=== PATIENT | female | born 1980 | race Hispanic/Latino ===

== ENCOUNTER 2017-11-18 17:10 | Emergency (ER) | payer BC, OTHER ==
[~2017-11-18] VITALS: Ht 152.4 cm; Wt 76.7 kg
[~2017-11-18 17:10] MED LIST: Z.0.LEVOTHYROXINE112 PO; Z.0.MOBIC7.5 MG PO
--- OUTSIDE RECORDS SUMMARY | 2017-11-18 17:14 | XMS REPORT | Clinical Summary ---
Author Author [facility] Address Unknown Phone Unavailable Care Team Providers Care It Investment/Portfolio Manager Name Role Phone Ade Campbell MD PCP Allergies Active Allergy Reactions Severity Noted Date Comments Coconut Oil Anaphylaxis High 07/12/2017 Erythromycin Rash Low 07/12/2017 Iodine Swelling 07/12/2017 Metronidazole Other (See Comments) High 07/14/2017 Jaw pain and clenching Soy Rash Low 07/12/2017 Current Medications Prescription Sig. Disp. Refills Start End Date Status Date acetaminophen-codeine TAKE 1 TABLET BY MOUTH 0 04/23/20 Active (TYLENOL WITH CODEINE #3) EVERY 6 HOURS NEEDED 17 300-30 mg per tablet FOR ABDOMINAL PAIN. amitriptyline (ELAVIL) 25 TAKE 1 TABLET AT BEDTIME 1 05/27/20 Active MG tablet FOR 1 WEEK, THEN 2 17 TABLETS AT BEDTIME fluticasone (FLONASE) 50 2 sprays by Each Nare 11 05/27/20 Active mcg/actuation nasal spray route once daily. 17 ibuprofen (ADVIL,MOTRIN) TAKE 1 TABLET BY MOUTH 4 0 05/17/20 Active 600 MG tablet TIMES A DAY NEEDED 17 montelukast (SINGULAIR) TAKE 1 TABLET BY MOUTH 0 05/23/20 Active 10 mg tablet DAILY AT 5PM 17 predniSONE (DELTASONE) 20 07/09/20 Active mg tablet 17 propranolol (INDERAL) 20 Take 20 mg by mouth 3 1 05/04/20 Active MG tablet (three) times a day. 17 rizatriptan SAP BPC DEVELOPER TAKE 1 TABLET AT 2 05/27/20 Active (MAXALT-SAP BPC DEVELOPER) 10 MG BEGINNING OF HEADACHE DECEMBER 16 disintegrating tablet REPEAT IN 2 HOURS IF NEEDED topiramate (TOPAMAX) 100 Take 100 mg by mouth once 1 05/09/20 Active MG tablet daily. 17 traMADol (ULTRAM) 50 mg TAKE 1 TABLET BY MOUTH 0 05/17/20 Active tablet EVERY 6 HOURS NEEDED 17 FOR SEVERE PAIN diphenhydrAMINE Take 1 capsule (25 mg 10 capsule 0 11/10/19 Active (BENADRYL) 25 mg capsule total) by mouth every 6 18 18 (six) hours as needed for itching for up to 30 days. methylPREDNISolone follow package directions 21 tablet 0 11/10/19 (MEDROL DOSEPAK) 4 mg 18 18 tablet Active Problems Problem Noted Date Diverticulitis large intestine 07/13/2017 Encounters Date Type Specialty Care Team Description 11/09/2017 Emergency Emergency Medicine Halima Manrique MD Allergic reaction, initial encounter (Primary Dx) 07/12/2017 [facility] General Surgery Kirby Schaffer DO Abdominal pain in female - Encounter Zeb Dang MD (Primary Dx) 07/15/2017 after 11/17/2016 Social History Tobacco Use Types Packs/Day Years Used Date Former Smoker Smokeless Tobacco: Never Used Alcohol Use Drinks/Week oz/Week Comments Yes occasionally Sex Assigned at Date Recorded Not on file Last Filed Vital Signs Vital Sign Reading Time Taken Blood Pressure 108/55 11/09/2017 2:00 PM CDT Pulse 102 11/09/2017 2:00 PM CDT Temperature 36.5 C (97.7 F) 11/09/2017 12:51 PM CDT Respiratory Rate 17 11/09/2017 2:00 PM CDT Oxygen Saturation 98% 11/09/2017 2:00 PM CDT Inhaled Oxygen - - Concentration Weight 76.7 kg (169 lb) 11/09/2017 12:52 PM CDT Height 152.4 cm (5') 11/09/2017 12:52 PM CDT Body Mass Index 33.01 11/09/2017 12:52 PM CDT Plan of Treatment Health Maintenance Due Date Last Done Comments PAP SMEAR 1999 INFLUENZA VACCINE 03/02/2018 Results * Estimated GFR (07/15/2017 5:14 AM) Only the most recent of 3 results within the time period is included. Component Value Ref Range GFR Non Af Amer >90 mL/min/1.73 m2 GFR Af Amer >90 mL/min/1.73 m2 Comment: Chronic kidney disease: <60 mL/min/1.73m2 Kidney failure: <15 mL/min/1.73m2 The estimated GFR is calculated from the IDMS-traceable Modification of Diet in Renal Disease Equation. The accuracy of the calculation is poor when the creatinine is normal. Calculated values >90 mL/min/1.73m2 are not reported. This equation has not been validated in children (<18 years), women, the elderly (>70 years), or ethnic groups other than Caucasians and Americans. Specimen Performing Laboratory Plasma specimen [facility] DEPARTMENT OF PATHOLOGY AND GENOMIC MEDICINE [address] [place] [address] * CBC with platelet and differential (07/15/2017 5:14 AM) Only the most recent of 3 results within the time period is included. Component Value Ref Range WBC 12.23 (H) 4.50 - 11.00 k/uL RBC 4.12 (L) 4.20 - 5.50 m/uL HGB 11.6 (L) 12.0 - 16.0 g/dL HCT 34.2 (L) 37.0 - 47.0 % MCV 83.0 82.0 - 100.0 fL MCH 28.2 27.0 - 34.0 pg MCHC 33.9 31.0 - 37.0 g/dL RDW - SD 36.5 (L) 37.0 - 55.0 fL MPV 9.6 8.8 - 13.2 fL Platelet count 343 150 - 400 k/uL Nucleated RBC 0.00 /100 WBC Neutrophils 76.2 (H) 39.0 - 69.0 % Lymphocytes 15.6 (L) 25.0 - 45.0 % Monocytes 7.4 0.0 - 10.0 % Eosinophils 0.0 0.0 - 5.0 % Basophils 0.1 0.0 - 1.0 % Immature granulocytes 0.7Comment: "Immature granulocytes" 0.0 - 1.0 % (promyelocytes, myelocytes, metamyelocytes) Specimen Performing Laboratory Blood [facility] DEPARTMENT OF PATHOLOGY AND [employer] MEDICINE [address] [place] [place] [address] * Basic metabolic panel (07/15/2017 5:14 AM) Only the most recent of 2 results within the time period is included. Component Value Ref Range Sodium 141 135 - 148 mEq/L Potassium 4.3 3.5 - 5.0 mEq/L Chloride 103 98 - 112 mEq/L CO2 26 24 - 31 mEq/L Anion gap 12 7 - 15 mEq/L Comment: Starting from October , anion gap calculation no longer incorporates potassium. Please note the change. BUN 8 6 - 20 mg/dL Creatinine 0.4 (L) 0.5 - 0.9 mg/dL Glucose 154 (H) 65 - 99 mg/dL Calcium 8.9 8.3 - 10.2 mg/dL Specimen Performing Laboratory Plasma specimen [facility] DEPARTMENT OF PATHOLOGY AND [facility] [id number] [place] [address] [place] [address] * Magnesium level (07/13/2017 2:16 PM) Component Value Ref Range Magnesium 1.7 1.6 - 2.6 mg/dL Specimen Performing Laboratory Plasma specimen [facility] DEPARTMENT PATHOLOGY AND [facility] [address] [place] [address] [place] [address] * Calcium level (07/13/2017 2:16 PM) Component Value Ref Range Calcium 9.4 8.3 - 10.2 mg/dL Specimen Performing Laboratory Plasma specimen [facility] DEPARTMENT PATHOLOGY AND [facility] [address] [place] [address] [place] [address] * CT Abdomen Pelvis Wo Contrast (07/13/2017 12:19 AM) Specimen Performing Laboratory [address] ABDOMEN PELVIS WO CONTRAST CLINICAL INDICATION:ABDOMINAL PAIN TECHNIQUE:Multidetector CT of the abdomen and pelvis was performed without intravenous contrast with multiplanar reconstructions. CT imaging was performed with iterative reconstruction technique and/or automated exposure control to reduce radiation dose. COMPARISON:04/14/2016. FINDINGS: Please note, the lack of intravenous and oral contrast limits evaluation of the abdominal and pelvic viscera. LOWER THORAX:Clear. LIVER:Normal. BILIARY:There are surgical changes related to cholecystectomy. There is no abnormal biliary dilation. SPLEEN:Normal. PANCREAS:Normal. ADRENALS:Normal. KIDNEYS:No mass or hydronephrosis. GI:Large and small bowel are normal in caliber. There is colonic diverticulosis with mild colonic wall thickening and pericolonic inflammation adjacent to the distal descending/proximal sigmoid colon. There are surgical changes related to appendectomy. VASCULAR:Unremarkable LYMPH NODES:No enlarged lymph nodes in the abdomen or pelvis. PELVIS:The urinary bladder is decompressed, limiting evaluation. There are surgical changes related to hysterectomy. BONES:There are no acute osseous abnormalities. OTHER:There is no ascites or pneumoperitoneum. IMPRESSION: Diverticulitis of the distal descending/proximal sigmoid colon without perforation or abscess formation. [facility]-[id number] Procedure Note Hm Interface, Radiology Results Incoming - 07/13/2017 12:[address] ABDOMEN PELVIS WO CONTRAST CLINICAL INDICATION: ABDOMINAL PAIN TECHNIQUE: Multidetector CT of the abdomen and pelvis was performed without intravenous contrast with multiplanar reconstructions. CT imaging was performed with iterative reconstruction technique and/or automated exposure control to reduce radiation dose. COMPARISON: 04/14/2016. FINDINGS: Please note, the lack of intravenous and oral contrast limits evaluation of the abdominal and pelvic viscera. LOWER THORAX: Clear. LIVER: Normal. BILIARY: There are surgical changes related to cholecystectomy. There is no abnormal biliary dilation. SPLEEN: Normal. PANCREAS: Normal. ADRENALS: Normal. KIDNEYS: No mass or hydronephrosis. GI: Large and small bowel are normal in caliber. There is colonic diverticulosis with mild colonic wall thickening and pericolonic inflammation adjacent to the distal descending/proximal sigmoid colon. There are surgical changes related to appendectomy. VASCULAR: Unremarkable LYMPH NODES: No enlarged lymph nodes in the abdomen or pelvis. PELVIS: The urinary bladder is decompressed, limiting evaluation. There are surgical changes related to hysterectomy. BONES: There are no acute osseous abnormalities. OTHER: There is no ascites or pneumoperitoneum. IMPRESSION: Diverticulitis of the distal descending/proximal sigmoid colon without perforation or abscess formation. [facility]-[id number] * Urinalysis screen and microscopy, with reflex to culture (07/12/2017 10:25 PM) Component Value Ref Range Specimen site Clean catch Color, UA Yellow Appearance, UA Slightly-Cloudy Specific gravity, UA 1.020 1.001 - 1.035 pH, UA 5.0 5.0 - 8.5 Protein, UA Negative Negative Glucose, UA Negative Negative Ketones, UA Negative Negative Bilirubin, UA Negative Negative Blood, UA Negative Negative Nitrite, UA Negative Negative Urobilinogen, UA Negative <2.0 Leukocyte esterase, UA Negative Negative Epithelial cells, UA Moderate /HPF Round epithelial cells, Few 0 - 1 /HPF UA WBC, UA 0-5 0 - 4 /HPF RBC, UA 0-5 0 - 2 /HPF Bacteria, UA Trace None seen Yeast, UA None seen Yeast with pseudohyphae, None seen UA Specimen Performing Laboratory Urine [facility] DEPARTMENT PATHOLOGY AND [facility] [address] [place] [address] * hCG qualitative, urine screen (07/12/2017 10:25 PM) Component Value Ref Range hCG qualitative, urine Negative Negative Comment: The manufacturers stated sensitivity of HcG test for serum is >/=10 mIU/ml and urine is >/=20mIU/ml. Specimen Performing Laboratory Urine [facility] DEPARTMENT PATHOLOGY AND [facility] [address] [address] * Lipase level (07/12/2017 10:25 PM) Component Value Ref Range Lipase 22 13 - 60 U/L Specimen Performing Laboratory Plasma specimen [facility] AND [facility] [address] [address] * Comprehensive metabolic panel (07/12/2017 10:25 PM) Component Value Ref Range Sodium 137 135 - 148 mEq/L Potassium 3.8 3.5 - 5.0 mEq/L Chloride 101 98 - 112 mEq/L CO2 21 (L) 24 - 31 mEq/L Anion gap 15 7 - 15 mEq/L Comment: Starting from October , anion gap calculation no longer incorporates potassium. Please note the change. BUN 9 6 - 20 mg/dL Creatinine 0.4 (L) 0.5 - 0.9 mg/dL Glucose 98 65 - 99 mg/dL Calcium 8.8 8.3 - 10.2 mg/dL Protein 7.0 6.3 - 8.3 g/dL Comment: [place] 4.6-7.0 g/dL 1 week 4.4-7.6 g/dL 7 months-1year 5.1-7.3 g/dL 1-2 years 5.6-7.5 g/dL >3 years 6.0-8.0 g/dL 18-150 6.3-8.3 g/dL Albumin 3.3 (L) 3.5 - 5.0 g/dL A/G ratio 0.9 0.7 - 3.8 Alkaline phosphatase 108 (H) 35 - 104 U/L AST 22 10 - 35 U/L ALT 20 5 - 50 U/L Total bilirubin 0.4 0.0 - 1.2 mg/dL Specimen Performing Laboratory Plasma specimen [facility] DEPARTMENT OF PATHOLOGY AND GENOMIC MEDICINE [address] [place] [address] after 11/17/2016 Insurance Payer Benefit Subscriber ID Type Phone Address Plan / Group CIG[employer] CIGNA OPEN xxxxxxxxxxx HMO ACCESS/NET WORK Home:
[2017-11-18] MEDS ORDERED: LABETALOL HCL 5 MG/ML 20ML VIAL IV STA (17:44)
[2017-11-18 18:01] LABS: BASOPHILS % 0.2 % (0.0-1.0); EOSINOPHILS # (AUTO) 0.5 (0.0-0.4); EOSINOPHILS % 5.1 % (0.0-6.0); HEMATOCRIT 34.4 % (34.2-44.1); HEMOGLOBIN 11.7 g/dL (12.0-16.0); LYMPHOCYTES # (AUTO) 2.4 (1.0-3.2); LYMPHOCYTES % 25.2 % (18.0-39.1); MEAN CORPUSCULAR HEMOGLOBIN 28.3 pg (28-32); MEAN CORPUSCULAR VOLUME 83.1 fL (81-99); MONOCYTES % 10.1 % (4.4-11.3); NEUTROPHILS # (AUTO) 5.5 (2.1-6.9); NEUTROPHILS % 58.3 % (38.7-80.0); PLATELET COUNT 296 x10e3/uL (140-360); RED BLOOD COUNT 4.14 x10e6/uL (3.6-5.1); RED CELL DISTRIBUTION WIDTH 13.7 % (11.7-14.4)
[2017-11-18 18:11] LABS: INR 1.13; PROTHROMBIN TIME 13.6 seconds (11.9-14.5)
[2017-11-18 18:12] LABS: PARTIAL THROMBOPLASTIN TIME 29.2 seconds (23.8-35.5)
--- NOTE | 2017-11-18 18:14 | Diagnostic Imaging Report ---
PROCEDURE: Frontal and lateral views of the chest. COMPARISON: None. INDICATIONS: FAST HR, SHAKES TODAY FINDINGS: Lines/tubes: None. Lungs: The lungs are well inflated and clear. There is no evidence of pneumonia or pulmonary edema. Pleura: There is no pleural effusion or pneumothorax. Heart and mediastinum: The heart and the mediastinum are normal. Bones: No acute bony abnormality. IMPRESSION: 1. No acute cardiopulmonary abnormalities. Hugo Toth M.D. Dictated by: Hugo Toth M.D. on 11/18/2017 at 18:15 Electronically approved by: Hugo Toth M.D. on 11/18/2017 at 18:15
[2017-11-18 18:16] LABS: ALANINE AMINOTRANSFERASE 26 IU/L (0-55); ALBUMIN/GLOBULIN RATIO 0.9 (0.8-2.0); ALKALINE PHOSPHATASE 118 IU/L (40-150); ANION GAP 11.7 mmol/L (8-16); BLOOD UREA NITROGEN 8 mg/dL (7-26); BUN/CREATININE RATIO 14 (6-25); CALCIUM 8.8 mg/dL (8.4-10.2); CARBON DIOXIDE 27 mmol/L (22-29); CHLORIDE 106 mmol/L (98-107); CREATININE, SERUM 0.57 mg/dL (0.57-1.11); EST GLOMERULAR FILTRATION RATE > 60 ML/MIN (60-); GLUCOSE 98 mg/dL (74-118); MAGNESIUM 1.4 MG/DL (1.3-2.1); POTASSIUM 3.7 mmol/L (3.5-5.1); SODIUM 141 mmol/L (136-145)
[2017-11-18] MEDS ORDERED: ONDANSETRON HCL4 MG (18:21)
[2017-11-18] MEDS ORDERED: AMITRIPTYLINE H25 MG (18:21)
[2017-11-18] MEDS ORDERED: PROPRANOLOL HCL20 MG (18:21)
[2017-11-18] MEDS ORDERED: MAXALT10 MG (18:21)
[2017-11-18] MEDS ORDERED: TOPIRAMATE25 MG (18:21)
[2017-11-18] MEDS ORDERED: DICYCLOMINE HCL10 MG (18:21)
[2017-11-18] MEDS ORDERED: LORAZEPAM INJ 2 MG/ML VIAL IV ONE (19:00)
[2017-11-18 19:29] VITALS: BP 125/53
== END 2017-11-18 19:37 | disposition home or self-care (01) ==
LOC: ER 17:10
DX: R00.2 Palpitations (principal); E05.90 Thyrotoxicosis, unspecified without thyrotoxic crisis or storm; Z85.43 Personal history of malignant neoplasm of ovary; Z85.41 Personal history of malignant neoplasm of cervix uteri
CPT/HCPCS: 36415; 71046; 80053; 83735; 84443; 85025; 85610; 85730; 93005; 99284; J2060

== ENCOUNTER 2018-01-10 15:08 | Emergency (ER) | payer OTHER ==
[~2018-01-10] VITALS: Ht 152.4 cm; Wt 76.7 kg
[~2018-01-10 15:08] MED LIST changes: +AMITRIPTYLINE H25 MG; +DICYCLOMINE HCL10 MG; +MAXALT10 MG; +ONDANSETRON HCL4 MG; +PROPRANOLOL HCL20 MG; +TOPIRAMATE25 MG
--- OUTSIDE RECORDS SUMMARY | 2018-01-10 15:12 | XMS REPORT ---
Author Author [facility] Address Unknown Phone Unavailable Care Team Providers Care Vegetable Washing Machine Operator Name Role Phone NAREN PIKE Unavailable Unavailable Problems This patient has no known problems. Allergies, Adverse Reactions, Alerts This patient has no known allergies or adverse reactions. Medications This patient has no known medications. Results Test Description Test Time Test Comments Text Results Atomic Results Result Comments CHEST 2 VIEWS [facility] [address] [id number] Patient Name: BERONICA RINCON MR #: [id number] : 1980 Age/Sex: 37/F Req # : [id number] Adm Physician: Ordered by: MAEGAN BURNS COAL CONVEYOR OPERATOR Report #: [id number] Location: ER Room/Bed: Procedure: [id number] DX/CHEST 2 VIEWS Exam Date: Exam Time: REPORT STATUS: Signed PROCEDURE: Frontal and lateral views of the chest. COMPARISON: None. INDICATIONS: FAST HR, SHAKES TODAY FINDINGS: Lines/tubes: None. Lungs: The lungs are well inflated and clear. There is no evidence of pneumonia or pulmonary edema. Pleura: There is no pleural effusion or pneumothorax. Heart and mediastinum: The heart and the mediastinum are normal. Bones: No acute bony abnormality. IMPRESSION: 1. No acute cardiopulmonary abnormalities. Padmini Toth M.D. Dictated by: Padmini Toth M.D. on 11/18/2017 at 18:15 Electronically approved by: Padmini Toth M.D. on 2017 at 18:15 Dictated By: PADMINI TOTH MD 14 Transcribed By: MARIE on 1814 COPY TO: MAEGAN BURNS NP
--- OUTSIDE RECORDS SUMMARY | 2018-01-10 15:12 | XMS REPORT | Clinical Summary ---
Author Author [facility] Address Unknown Phone Unavailable Care Team Providers Care Fish And Game Club Manager Name Role Phone Ade Campbell MD [...] tablet (three) times a day. 17 rizatriptan SWIMMING COACH OR INSTRUCTOR TAKE 1 TABLET AT 2 05/27/20 Active (MAXALT-SWIMMING COACH OR INSTRUCTOR) 10 MG BEGINNING OF HEADACHE DECEMBER 16 disintegrating tablet REPEAT IN 2 HOURS IF NEEDED topiramate (TOPAMAX) 100 Take 100 mg by mouth once 1 05/09/20 Active MG tablet daily. 17 traMADol (ULTRAM) 50 mg TAKE 1 TABLET BY MOUTH 0 05/17/20 Active tablet EVERY 6 HOURS NEEDED 17 FOR SEVERE PAIN methylPREDNISolone follow package directions 21 tablet 0 11/10/19 (MEDROL DOSEPAK) 4 mg 18 18 tablet diphenhydrAMINE Take 1 capsule (25 mg 10 capsule 0 11/10/19 (BENADRYL) 25 mg capsule total) by mouth every 6 18 18 (six) hours as needed for itching for up to 30 days. Active Problems Problem Noted Date Diverticulitis large intestine 07/13/2017 Encounters Date Type Specialty Care Team Description 11/09/2017 Emergency Emergency Medicine Halima Manrique MD Allergic reaction, initial encounter (Primary Dx) 07/12/2017 [facility] General Surgery Kirby Schaffer, Abdominal pain in female - Encounter Zeb Dang MD (Primary Dx) 07/15/2017 after 01/09/2017 Social History Tobacco Use Types Packs/Day Years [...] Health Maintenance Due Date Last Done Comments CERVICAL CANCER SCREENING 1999 INFLUENZA VACCINE 03/02/2018 Results * Estimated [...] and Americans. Specimen Performing Laboratory Plasma specimen [facility] OF PATHOLOGY AND GENOMIC MEDICINE [address] [place] [address] * CBC with platelet and differential (07/15/2017 [...] (promyelocytes, myelocytes, metamyelocytes) Specimen Performing Laboratory Blood [facility] DEPARTMENT OF PATHOLOGY AND [employer] MEDICINE [address] [place] [address] * Basic metabolic panel (07/15/2017 5:14 AM) [...] 10.2 mg/dL Specimen Performing Laboratory Plasma specimen [facility] DEPARTMENT OF PATHOLOGY AND [facility] MEDICINE [address] [place] [address] [place] [address] * Magnesium level (07/13/2017 2:16 PM) Component Value Ref Range Magnesium 1.7 1.6 - 2.6 mg/dL Specimen Performing Laboratory Plasma specimen [facility] DEPARTMENT PATHOLOGY AND [facility] [address] [place] [address] [place] [address] * Calcium level (07/13/2017 2:16 PM) Component Value Ref Range Calcium 9.4 8.3 - 10.2 mg/dL Specimen Performing Laboratory Plasma specimen [facility] DEPARTMENT PATHOLOGY AND [facility] [address] [place] [address] [place] [address] * CT Abdomen Pelvis Wo Contrast (07/13/2017 12:19 AM) Specimen Performing Laboratory [address] ABDOMEN PELVIS WO CONTRAST CLINICAL [...] sigmoid colon without perforation or abscess formation. [facility]-[id number] Procedure Note Hm Interface, Radiology Results Incoming - 07/13/2017 12:28 AM CAR SALES REPRESENTATIVE CT ABDOMEN PELVIS WO CONTRAST CLINICAL INDICATION: [...] sigmoid colon without perforation or abscess formation. [facility]-[id number] * Urinalysis screen and microscopy, with reflex [...] None seen UA Specimen Performing Laboratory Urine [facility] PATHOLOGY AND [facility] [address] [place] [address] * hCG qualitative, urine screen (07/12/2017 10:25 PM) Component Value Ref Range hCG qualitative, urine Negative Negative Comment: The manufacturers stated sensitivity of HcG test for serum is >/=10 mIU/ml and urine is >/=20mIU/ml. Specimen Performing Laboratory Urine [facility] PATHOLOGY AND [facility] [address] [place] [address] * Lipase level (07/12/2017 10:25 PM) Component Value Ref Range Lipase 22 13 - 60 U/L Specimen Performing Laboratory Plasma specimen [facility] AND [facility] [address] [place] [address] * Comprehensive metabolic panel (07/12/2017 10:25 PM) [...] Protein 7.0 6.3 - 8.3 g/dL Comment: 4.6-7.0 g/dL 1 week 4.4-7.6 g/dL 7 [...] 1.2 mg/dL Specimen Performing Laboratory Plasma specimen [facility] DEPARTMENT OF PATHOLOGY AND GENOMIC MEDICINE [address] [place] [address] after 01/09/2017 Insurance Payer Benefit Subscriber ID Type Phone Address Plan / Group [employer]IG[employer] CIGCHANTE OPEN xxxxxxxxxxx HMO ACCESS/NET WORK Home:
[2018-01-10 15:30] LABS: BASOPHILS % 0.1 % (0.0-1.0); EOSINOPHILS # (AUTO) 0.4 (0.0-0.4); EOSINOPHILS % 3.6 % (0.0-6.0); HEMATOCRIT 38.7 % (34.2-44.1); HEMOGLOBIN 13.4 g/dL (12.0-16.0); LYMPHOCYTES # (AUTO) 1.9 (1.0-3.2); MEAN CORPUSCULAR HEMOGLOBIN 29.8 pg (28-32); MEAN CORPUSCULAR HGB CONC 34.6 g/dL (31-35); MEAN CORPUSCULAR VOLUME 86.2 fL (81-99); MONOCYTES # (AUTO) 0.9 (0.2-0.8); MONOCYTES % 7.7 % (4.4-11.3); NEUTROPHILS # (AUTO) 8.5 (2.1-6.9); NEUTROPHILS % 72.3 % (38.7-80.0); PLATELET COUNT 328 x10e3/uL (140-360); RED BLOOD COUNT 4.49 x10e6/uL (3.6-5.1)
[2018-01-10 15:51] LABS: ALANINE AMINOTRANSFERASE 20 IU/L (0-55); ALBUMIN 3.2 g/dL (3.5-5.0); ALKALINE PHOSPHATASE 147 IU/L (40-150); ANION GAP 10.9 mmol/L (8-16); BLOOD UREA NITROGEN 8 mg/dL (7-26); BUN/CREATININE RATIO 13 (6-25); CALCIUM 9.1 mg/dL (8.4-10.2); CARBON DIOXIDE 25 mmol/L (22-29); CHLORIDE 107 mmol/L (98-107); CREATININE, SERUM 0.61 mg/dL (0.57-1.11); EST GLOMERULAR FILTRATION RATE > 60 ML/MIN (60-); GLUCOSE 111 mg/dL (74-118); POTASSIUM 3.9 mmol/L (3.5-5.1); SODIUM 139 mmol/L (136-145)
[2018-01-10 16:09] LABS: BILIRUBIN,URINE NEGATIVE (NEGATIVE); CLARITY,URINE SL CLOUDY (CLEAR); COLOR,URINE YELLOW (YELLOW); KETONES,URINE NEGATIVE (NEGATIVE); LEUKOCYTE ESTERASE ,URINE 1+ (NEGATIVE); NITRITE,URINE POSITIVE (NEGATIVE); PROTEIN,URINE DIPSTICK TRACE (NEGATIVE); URINE UROBILINOGEN 0.2 mg/dL (0.2 - 1)
[2018-01-10 16:10] LABS: PREGNANCY TEST, URINE NEGATIVE (NEGATIVE)
[2018-01-10 16:19] LABS: WBC,URINE (MAN) 21-50 /HPF (0-5)
[2018-01-10 16:20] LABS: BACTERIA,URINE MANY /HPF; EPITHELIAL CELLS,URINE MODERATE /LPF; MUCUS,URINE FEW (RARE)
[2018-01-10] MEDS ORDERED: DICYCLOMINE HCL10 MG PO (16:53)
[2018-01-10] MEDS ORDERED: BENADRYL25 M1 PO (16:53)
[2018-01-10] MEDS ORDERED: METHIMAZOLE PEG (16:53)
[2018-01-10] MEDS ORDERED: PREDNISONE10 MG PO (16:53)
[2018-01-10] MEDS ORDERED: ZYRTEC10 M3 PO (16:53)
[2018-01-10] MEDS ORDERED: KETOROLAC TROMETHAMINE 30 MG/ML VIAL IV STA (17:32)
[2018-01-10] MEDS ORDERED: ONDANSETRON HCL INJ 2 MG/ML VIAL IV STA (17:32)
--- NOTE | 2018-01-10 18:13 | Diagnostic Imaging Report ---
PROCEDURE: CT ABDOMEN AND PELVIS WITHOUT CONTRAST TECHNIQUE: The abdomen and pelvis were scanned utilizing a multidetector helical scanner from the diaphragm to the lesser trochanter without contrast. Coronal and sagittal multiplanar reformations were obtained. COMPARISON: None. INDICATIONS: BILATERAL FLANK PAIN FINDINGS: ABSENCE OF INTRAVENOUS CONTRAST DECREASES SENSITIVITY FOR DETECTION OF FOCAL LESIONS AND VASCULAR PATHOLOGY. LOWER THORAX: Normal. HEPATOBILIARY: No focal hepatic lesions. No biliary ductal dilatation. Gallbladder: Cholecystectomy SPLEEN: No splenomegaly. PANCREAS: No focal masses or ductal dilatation. ADRENALS: No adrenal nodules. KIDNEYS/URETERS: No hydronephrosis, stones, or solid mass lesions. PELVIC ORGANS/BLADDER: Hysterectomy. 3.5 cm left ovarian cyst. Right ovary is not visualized. PERITONEUM / RETROPERITONEUM: No free air or fluid. LYMPH NODES: No lymphadenopathy. VESSELS: Unremarkable. GI TRACT: No distention or wall thickening. Hyperdensity at the expected location of the appendix, likely an appendectomy post surgical change. BONES AND SOFT TISSUES: Unremarkable. IMPRESSION: 1. No acute abnormalities identified. 2. No renal stones. Dictated by: Cory Campbell M.D. on 01/10/2018 at 18:16 Electronically approved by: Cory Campbell M.D. on 01/10/2018 at 18:16
== END 2018-01-10 19:03 | disposition home or self-care (01) ==
LOC: ER 15:08
DX: N30.01 Acute cystitis with hematuria (principal); Z88.1 Allergy status to other antibiotic agents; Z91.018 Allergy to other foods
CPT/HCPCS: 36415; 74176; 80053; 81001; 81025; 85025; 99284; J1885; J2405

== ENCOUNTER 2018-01-11 04:35 | Emergency (ER) | payer OTHER ==
[~2018-01-11] VITALS: Ht 152.4 cm; Wt 76.7 kg
[~2018-01-11 04:35] MED LIST changes: +BENADRYL25 M1 PO; +DICYCLOMINE HCL10 MG PO; +METHIMAZOLE PEG; +PREDNISONE10 MG PO; +ZYRTEC10 M3 PO
--- OUTSIDE RECORDS SUMMARY | 2018-01-11 04:39 | XMS REPORT | Clinical Summary ---
Author Author [facility] Address Unknown Phone Unavailable Care Team Providers Care Germ Drier Name Role Phone Ade Campbell MD PCP [...] tablet (three) times a day. 17 rizatriptan RECEPTION CENTRE MANAGER TAKE 1 TABLET AT 2 05/27/20 Active (MAXALT-RECEPTION CENTRE MANAGER) 10 MG BEGINNING OF HEADACHE DECEMBER 16 [...] Allergic reaction, initial encounter (Primary Dx) 07/12/2017 [facility] General Surgery Kirby Schaffer, Abdominal pain in female - Encounter Zeb Dang MD (Primary Dx) 07/15/2017 after 01/10/2017 Social History Tobacco Use Types Packs/Day Years [...] and Americans. Specimen Performing Laboratory Plasma specimen [facility] OF PATHOLOGY AND GENOMIC MEDICINE [address] [place] [address] * CBC with platelet and differential (07/15/2017 [...] (promyelocytes, myelocytes, metamyelocytes) Specimen Performing Laboratory Blood [facility] DEPARTMENT OF PATHOLOGY AND [employer] MEDICINE [address] [place] [address] * Basic metabolic panel (07/15/2017 5:14 AM) [...] 10.2 mg/dL Specimen Performing Laboratory Plasma specimen [facility] DEPARTMENT OF PATHOLOGY AND [facility] [address] [address] MEDICINE [address] [place] [address] [place] [address] * Magnesium level (07/13/2017 2:16 PM) Component Value Ref Range Magnesium 1.7 1.6 - 2.6 mg/dL Specimen Performing Laboratory Plasma specimen [facility] DEPARTMENT PATHOLOGY AND [facility] [id number] [place] [address] [place] [address] * Calcium level (07/13/2017 2:16 PM) Component Value Ref Range Calcium 9.4 8.3 - 10.2 mg/dL Specimen Performing Laboratory Plasma specimen [facility] DEPARTMENT PATHOLOGY AND [facility] [address] [place] [address] [place] [address] * CT Abdomen Pelvis Wo Contrast (07/13/2017 12:19 AM) Specimen Performing Laboratory [address] ABDOMEN PELVIS WO CONTRAST CLINICAL [...] sigmoid colon without perforation or abscess formation. [facility]-[id number] Procedure Note Hm Interface, Radiology Results Incoming - 07/13/2017 12:[address] ABDOMEN PELVIS WO CONTRAST CLINICAL INDICATION: [...] sigmoid colon without perforation or abscess formation. [facility]-[id number] * Urinalysis screen and microscopy, with reflex [...] None seen UA Specimen Performing Laboratory Urine [facility] PATHOLOGY AND [facility] [address] [place] [address] * hCG qualitative, urine screen (07/12/2017 10:25 PM) Component Value Ref Range hCG qualitative, urine Negative Negative Comment: The manufacturers stated sensitivity of HcG test for serum is >/=10 mIU/ml and urine is >/=20mIU/ml. Specimen Performing Laboratory Urine [facility] PATHOLOGY AND [facility] [address] [place] [address] * Lipase level (07/12/2017 10:25 PM) Component Value Ref Range Lipase 22 13 - 60 U/L Specimen Performing Laboratory Plasma specimen [facility] AND [facility] [address] [place] [address] * Comprehensive metabolic panel (07/12/2017 10:25 PM) [...] 1.2 mg/dL Specimen Performing Laboratory Plasma specimen [facility] DEPARTMENT OF PATHOLOGY AND GENOMIC MEDICINE [address] [place] [address] after 01/10/2017 Insurance Payer Benefit Subscriber ID Type Phone Address Plan / Group [employer] CIGCHANTE OPEN xxxxxxxxxxx HMO ACCESS/NET WORK Home:
--- OUTSIDE RECORDS SUMMARY | 2018-01-11 04:39 | XMS REPORT | Continuity of Care Document ---
Author Author [facility] Organization [facility] Address [address] [place] [address] Phone Unavailable Care Team Providers Care Woods Superintendent Name Role Phone NONSTAFF PCP Unavailable Insurance Providers Guarantor StacyBeronica Address [address] [place] [address] Email [email or web address] Payer Cigna Hmo Policy Number [id number] Subscriber's Name Beronica Kumar Relationship 18 Self / Same As Patient Group Number [id number] Group Name [facility] Effective Date 17 Advance Directives Directive Response Recorded Date/Time Does the patient have an advance directive? No 03/18/11 2:20pm If yes, is advance directive on file with [facility]? No 03/18/11 2:20pm If not on file with [facility] will patient provide a copy? No 03/23/11 8:12am Do you have a Directive to Physician? No 01/10/18 3:48pm Do you have a Medical Power of Switchboard Operator? No 01/10/18 3:48pm Do you have an out of hospital Do Not Resuscitate Order? No 01/10/18 3:48pm Do you have any special needs we should be aware of? No 01/10/18 3:48pm Do you have a support person here with you today? Yes 01/10/18 3:48pm Did patient receive Notice of Privacy Practices? Yes 01/10/18 3:48pm Did patient receive patient rights and responsibilities? Yes 01/10/18 3:48pm Problems No problem information available. Medications Current Home Medications Medication Dose Units Route Directions Days Qty Instructions Start Date Amitriptyline Hcl 25 Mg Tablet 60 Cetirizine Hcl (Zyrtec) 10 Mg Capsule 10 Mg Oral Daily THERAPEUTICALLY SUBSTITUTED WITH LORATIDINE 10MG Dicyclomine Hcl 10 Mg Capsule 60 Dicyclomine Hcl 10 Mg Capsule 10 Mg Oral As Needed as needed for Pain Diphenhydramine Hcl (Benadryl) 25 Mg Capsule 25 Mg Oral As Needed as needed for Itching Methymazole 20 Mg Peg Tube Three Times A Day Prednisone 10 Mg Tab 10 Mg Oral As Needed as needed for Shortness Of Breath Propranolol Hcl 20 Mg Tablet 270 Rizatriptan Benzoate (Maxalt) 10 Mg Tablet 9 Past Home Medications Medication Directions Ordered Status Levothyroxine Sodium 112 Mcg Tablet, 112 Mcg Oral Daily Discontinued Meloxicam (Mobic) 7.5 Mg Tablet, 7.5 Mg Oral Daily Discontinued Ondansetron Hcl 4 Mg Tablet, Discontinued Rizatriptan Benzoate (Maxalt) 10 Mg Tablet, Discontinued Topiramate 25 Mg Tablet, Discontinued Social History Smoking Status Start Date Stop Date Never Smoker Hospital Discharge Instructions No hospital discharge instruction information available. Plan of Care Discharge Date 01/10/18 7:03pm Disposition HOME, SELF-CARE Condition at Discharge Stable Instructions/Education Provided Abdominal Pain - Adult Urinary Tract Infection - Women Forms Provided Work/School Excuse Prescriptions See Medication Section Referrals Md Shannan Additional Instructions/Education follow up with pcp take meds as directed Functional Status No functional status information available. Allergies, Adverse Reactions, Alerts Allergen Type Severity Reaction Status Last Updated Iodine Allergy Mild ITCH,N/V,SOB Active 11/18/17 Coconut oil Allergy Mild Active 01/10/18 Erythromycin base Allergy Mild RASH Active 11/18/17 Metronidazole Allergy Mild JAW LOCK Active 11/18/17 Soy Allergy Mild Active 11/18/17 Immunizations No immunization information available. Vital Signs Acute Vital Signs Vital Response Date/Time Pulse Pulse Rate (adult) 90 bpm (60 - 90) 11/18/2017 7:29pm Respiratory Rate 18 bpm (12 - 24) 11/18/2017 7:29pm Blood Pressure 125/53 mm Hg 11/18/2017 7:29pm Height 5 ft 0 in 01/10/2018 3:15pm Weight 169 lb 01/10/2018 3:15pm Body Mass Index 33.0 kg/m^2 01/10/2018 3:15pm Results Laboratory Results Test Name Result Units Flags Reference Collection Date/Time Result Date/ Time Comments Prothrombin Time 13.6 seconds 11.9-14.5 11/18/2017 5:50pm 11/18/2017 6: 16pm Prothromb Time International Ratio 1.13 11/18/2017 5:50pm 2017 6:16pm Oral Anticoagulant Therapy INR Values: 1. Low Intensity Therapy 1.5 - 2.0 2. Moderate Intensity Therapy 2.0 - 3.0 3. High Intensity Therapy(1) 2.5 - 3.5 4. High Intensity Therapy(2) 3.0 - 4.0 5. Panic Value INR > 5.0 Activated Partial Thromboplast Time 29.2 seconds 23.8-35.5 11/18/2017 5: 50pm 11/18/2017 6:16pm Magnesium Level 1.4 MG/DL 1.3-2.1 11/18/2017 5:50pm 11/18/2017 6:17pm Thyroid Stimulating Hormone (TSH) 0.000 uIU/mL L 0.350-4.940 11/18/2017 5 :50pm 11/18/2017 6:49pm White Blood Count 11.78 x10e3/uL H 4.8-10.8 01/10/2018 3:18pm 2017 3:30pm Red Blood Count 4.49 x10e6/uL 3.6-5.1 01/10/2018 3:18pm 01/10/2018 3: 30pm Hemoglobin 13.4 g/dL 12.0-16.0 01/10/2018 3:18pm 01/10/2018 3:30pm Hematocrit 38.7 % 34.2-44.1 01/10/2018 3:18pm 01/10/2018 3:30pm Mean Corpuscular Volume 86.2 fL 81-99 01/10/2018 3:18pm 01/10/2018 3: 30pm Mean Corpuscular Hemoglobin 29.8 pg 28-32 01/10/2018 3:18pm 01/10/2018 3:30pm Mean Corpuscular Hemoglobin Concent 34.6 g/dL 31-35 01/10/2018 3:1801/10/2018 3:30pm Red Cell Distribution Width 14.0 % 11.7-14.4 01/10/2018 3:18pm 2017 3:30pm Platelet Count 328 x10e3/uL 140-360 01/10/2018 3:18pm 01/10/2018 3: 30pm Neutrophils (%) (Auto) 72.3 % 38.7-80.0 01/10/2018 3:18pm 01/10/2018 3: 30pm Lymphocytes (%) (Auto) 16.0 % L 18.0-39.1 01/10/2018 3:18pm 01/10/2018 3 :30pm Monocytes (%) (Auto) 7.7 % 4.4-11.3 01/10/2018 3:18pm 01/10/2018 3: 30pm Eosinophils (%) (Auto) 3.6 % 0.0-6.0 01/10/2018 3:18pm 01/10/2018 3: 30pm Basophils (%) (Auto) 0.1 % 0.0-1.0 01/10/2018 3:18pm 01/10/2018 3:30pm IM GRANULOCYTES % 0.3 % 0.0-1.0 01/10/2018 3:18pm 01/10/2018 3:30pm Neutrophils # (Auto) 8.5 H 2.1-6.9 01/10/2018 3:18pm 01/10/2018 3: 30pm Lymphocytes # (Auto) 1.9 1.0-3.2 01/10/2018 3:18pm 01/10/2018 3:30pm Monocytes # (Auto) 0.9 H 0.2-0.8 01/10/2018 3:18pm 01/10/2018 3:30pm Eosinophils # (Auto) 0.4 0.0-0.4 01/10/2018 3:18pm 01/10/2018 3:30pm Basophils # (Auto) 0.0 0.0-0.1 01/10/2018 3:18pm 01/10/2018 3:30pm Absolute Immature Granulocyte (auto 0.03 x10e3/uL 0-0.1 01/10/2018 3: 18pm 01/10/2018 3:30pm Urine Color YELLOW YELLOW 01/10/2018 3:18pm 01/10/2018 4:10pm Urine Clarity SL CLOUDY CLEAR 01/10/2018 3:18pm 01/10/2018 4:10pm Urine Specific Lucas 1.020 1.010-1.025 01/10/2018 3:18pm 2017 4:10pm Urine pH 6 5 - 7 01/10/2018 3:18pm 01/10/2018 4:10pm Urine Leukocyte Esterase 1+ H NEGATIVE 01/10/2018 3:18pm 01/10/2018 4: 10pm Urine Nitrite POSITIVE H NEGATIVE 01/10/2018 3:18pm 01/10/2018 4:10pm Urine Protein TRACE H NEGATIVE 01/10/2018 3:18pm 01/10/2018 4:10pm Urine Glucose (UA) NEGATIVE NEGATIVE 01/10/2018 3:18pm 01/10/2018 4: 10pm Urine Ketones NEGATIVE NEGATIVE 01/10/2018 3:18pm 01/10/2018 4:10pm Urine Urobilinogen 0.2 mg/dL 0.2 - 1 01/10/2018 3:18pm 01/10/2018 4: 10pm Urine Bilirubin NEGATIVE NEGATIVE 01/10/2018 3:18pm 01/10/2018 4: 10pm Urine Blood 1+ H NEGATIVE 01/10/2018 3:18pm 01/10/2018 4:10pm Urine WBC 21-50 /HPF H 0-5 01/10/2018 3:18pm 01/10/2018 4:20pm Urine RBC 6-10 /HPF H 0-5 01/10/2018 3:18pm 01/10/2018 4:20pm Urine Bacteria MANY /HPF H NONE 01/10/2018 3:18pm 01/10/2018 4:20pm Urine Epithelial Cells MODERATE /LPF NONE 01/10/2018 3:18pm 01/10/2018 4:20pm Urine Mucus FEW H RARE 01/10/2018 3:18pm 01/10/2018 4:20pm Urine Test NEGATIVE NEGATIVE 01/10/2018 3:18pm 01/10/2018 4 :10pm Sodium Level 139 mmol/L 136-145 01/10/2018 3:18pm 01/10/2018 3:52pm Potassium Level 3.9 mmol/L 3.5-5.1 01/10/2018 3:18pm 01/10/2018 3:52pm Chloride Level 107 mmol/L 98-107 01/10/2018 3:18pm 01/10/2018 3:52pm Carbon Dioxide Level 25 mmol/L 22-29 01/10/2018 3:18pm 01/10/2018 3: 52pm Anion Gap 10.9 mmol/L 8-16 01/10/2018 3:18pm 01/10/2018 3:52pm Blood Urea Nitrogen 8 mg/dL 7-26 01/10/2018 3:18pm 01/10/2018 3:52pm Creatinine 0.61 mg/dL 0.57-1.11 01/10/2018 3:18pm 01/10/2018 3:52pm BUN/Creatinine Ratio 13 6-25 01/10/2018 3:18pm 01/10/2018 3:52pm Estimat Glomerular Filtration Rate > 60 ML/MIN 60- 01/10/2018 3:18pm 3:52pm Ranges were taken from the National Kidney Disease Education Program and the National [employer] literature. Reference ranges: 60 or greater: Normal 16-59 (for 3 consecutive months): Chronic kidney disease 15 or less: Kidney failure Glucose Level 111 mg/dL 74-118 01/10/2018 3:18pm 01/10/2018 3:52pm Calcium Level 9.1 mg/dL 8.4-10.2 01/10/2018 3:18pm 01/10/2018 3:52pm Total Bilirubin 0.4 mg/dL 0.2-1.2 01/10/2018 3:18pm 01/10/2018 3:52pm Aspartate Amino Transf (AST/SGOT) 16 IU/L 5-34 01/10/2018 3:18pm 2017 3:52pm Alanine Aminotransferase (ALT/SGPT) 20 IU/L 0-55 01/10/2018 3:18pm 06/2018 3:52pm Total Protein 6.4 g/dL L 6.5-8.1 01/10/2018 3:18pm 01/10/2018 3:52pm Albumin 3.2 g/dL L 3.5-5.0 01/10/2018 3:18pm 01/10/2018 3:52pm Globulin 3.2 g/dL 2.3-3.5 01/10/2018 3:18pm 01/10/2018 3:52pm Albumin/Globulin Ratio 1.0 0.8-2.0 01/10/2018 3:18pm 01/10/2018 3: 52pm Alkaline Phosphatase 147 IU/L 40-150 01/10/2018 3:18pm 01/10/2018 3: 52pm Procedures Procedure Status Date Provider(s) X-ray of chest, two views Active 11/18/[address] of abdomen and pelvis without contrast Active 01/10/18 HOMER WOOD NP Encounters Encounter Location Arrival/Admit Date Discharge/Depart Date Attending Provider Departed Emergency Room [facility] 01/10/18 3:08pm 7:03pm SHIVAM GUEVARA MD Departed Emergency Room [facility] 11/18/17 5:10pm 7:37pm NAREN PIKE MD
== END 2018-01-11 05:58 | disposition left against medical advice (07) ==
LOC: ER 04:35
DX: R10.84 Generalized abdominal pain (principal)

== ENCOUNTER 2018-04-17 14:16 | Emergency (ER) | payer OTHER ==
[~2018-04-17] VITALS: Ht 152.4 cm; Wt 76.2 kg
[2018-04-17 14:42] LABS: BASOPHILS % 0.3 % (0.0-1.0); EOSINOPHILS # (AUTO) 0.4 (0.0-0.4); EOSINOPHILS % 3.2 % (0.0-6.0); HEMATOCRIT 37.4 % (34.2-44.1); HEMOGLOBIN 12.7 g/dL (12.0-16.0); LYMPHOCYTES # (AUTO) 2.5 (1.0-3.2); LYMPHOCYTES % 22.6 % (18.0-39.1); MEAN CORPUSCULAR HEMOGLOBIN 29.2 pg (28-32); MONOCYTES # (AUTO) 1.1 (0.2-0.8); MONOCYTES % 9.9 % (4.4-11.3); NEUTROPHILS % 63.7 % (38.7-80.0); PLATELET COUNT 372 x10e3/uL (140-360); RED BLOOD COUNT 4.35 x10e6/uL (3.6-5.1); RED CELL DISTRIBUTION WIDTH 12.1 % (11.7-14.4)
--- NOTE | 2018-04-17 14:58 | Diagnostic Imaging Report ---
EXAMINATION: CHEST SINGLE (PORTABLE) COMPARISON: Chest x-ray 11/18/2017 INDICATION: Palpitations DISCUSSION: Frontal view of the chest obtained at 1438 hours. HEART AND MEDIASTINUM: The cardiomediastinal silhouette is unremarkable. LINES: None. LUNGS: The lungs are well inflated and clear. No pneumonia or pulmonary edema. PLEURA: No pleural effusion or pneumothorax. Mild central eventration of the right diaphragm is stable. BONES AND SOFT TISSUES: No focal osseous lesion. The soft tissues are normal. IMPRESSION: No acute cardiopulmonary disease. Signed by: Dr. Francesco Sanches MD on 04/17/2018 2:54 PM
[2018-04-17 15:00] LABS: ALANINE AMINOTRANSFERASE 30 IU/L (0-55); ALBUMIN 3.2 g/dL (3.5-5.0); ALBUMIN/GLOBULIN RATIO 0.9 (0.8-2.0); ALKALINE PHOSPHATASE 134 IU/L (40-150); ANION GAP 12.5 mmol/L (8-16); BLOOD UREA NITROGEN 9 mg/dL (7-26); BUN/CREATININE RATIO 12 (6-25); CARBON DIOXIDE 24 mmol/L (22-29); CHLORIDE 102 mmol/L (98-107); CREATININE, SERUM 0.76 mg/dL (0.57-1.11); EST GLOMERULAR FILTRATION RATE > 60 ML/MIN (60-); GLUCOSE 96 mg/dL (74-118); POTASSIUM 3.5 mmol/L (3.5-5.1); SODIUM 135 mmol/L (136-145)
[2018-04-17 15:06] LABS: COLOR,URINE YELLOW (YELLOW); LEUKOCYTE ESTERASE ,URINE TRACE (NEGATIVE); NITRITE,URINE NEGATIVE (NEGATIVE)
[2018-04-17 15:07] LABS: BILIRUBIN,URINE NEGATIVE (NEGATIVE); KETONES,URINE TRACE (NEGATIVE); PROTEIN,URINE DIPSTICK NEGATIVE (NEGATIVE); URINE UROBILINOGEN 1 mg/dL (0.2 - 1)
[2018-04-17 15:12] LABS: BACTERIA,URINE FEW /HPF; CLARITY,URINE HAZY (CLEAR); EPITHELIAL CELLS,URINE MANY /LPF; RBC,URINE 0-5 /HPF (0-5); WBC,URINE (MAN) 0-5 /HPF (0-5)
[2018-04-17] MEDS ORDERED: PROPRANOLOL HCL 1 MG/ML VIAL INJ ONE (15:15)
[2018-04-17 15:16] LABS: FREE THYROXINE INDEX 5.9271 (1.4-3.8)
[2018-04-17 16:17] VITALS: BP 113/76
[2018-04-17] MEDS ORDERED: PROPRANOLOL HCL 40 MG TAB PO ONE (16:30)
== END 2018-04-17 16:55 | disposition home or self-care (01) ==
LOC: ER 14:16
DX: R06.09 Other forms of dyspnea (principal); R07.89 Other chest pain
CPT/HCPCS: 36415; 71045; 80053; 81001; 83880; 84436; 84443; 84479; 84702; 85025; 85379; 93005; 99284; J1800

== ENCOUNTER 2018-09-21 23:16 | Emergency (ER) | payer SELFPAY ==
[~2018-09-21] VITALS: Ht 152.4 cm; Wt 76.2 kg
--- OUTSIDE RECORDS SUMMARY | 2018-09-21 23:21 | XMS REPORT | Continuity of Care Document ---
Author Author [facility] Interface Address Unknown Phone Unavailable Problems Problem Status Onset Date Classification Date Reported Comments Source LAPAROSCOPIC APPENDECTOMY Active 01/09/2014 Condition 01/10/2014 [facility] Hyperthyroidism Active Problem 11/13/2014 [facility] Hypertension Active Problem 11/13/2014 [facility] Vitamin d deficiency Active Problem 11/13/2014 [facility] Uterine leiomyoma Active Diagnosis 03/20/2014 [facility] Thyroid nodule Active Diagnosis 03/20/2014 [facility] Postoperative female pelvic peritoneal adhesions Active Diagnosis 03/20/2014 [facility] S/P appendectomy Active Diagnosis 03/20/2014 [facility] Hospital discharge follow-up Active Diagnosis 03/20/2014 [facility] Hypothyroid Active Diagnosis 07/10/2014 [facility] Family history of thyroid cancer Active Diagnosis 03/20/2014 [facility] Fatigue Active Diagnosis 03/20/2014 [facility] Sinusitis Active Diagnosis 07/10/2014 [facility] Jaw pain Active Diagnosis 10/31/2014 [facility] Depression Active Diagnosis 10/31/2014 [facility] Anxiety Active Diagnosis 10/31/2014 [facility] Anxiety and depression Active Diagnosis 11/13/2014 [facility] Insomnia Active Diagnosis 11/13/2014 [facility] Fever Active Diagnosis 07/10/2014 [facility] Enlarged thyroid Active Diagnosis 07/10/2014 [facility] Upper respiratory infection Active Diagnosis 07/10/2014 [facility] Cough Active Diagnosis 07/10/2014 [facility] Medications Medication Details Route Status Patient Instructions Ordering Provider Order Date Source Levothyroxine Sodium 112 Mcg Tablet, 112 Mcg Oral Daily Active 01/10/2018 [facility] Meloxicam (Mobic) 7.5 Mg Tablet, 7.5 Mg Oral Daily Active 01/10/2018 [facility] Ondansetron Hcl 4 Mg Tablet, Active 01/10/2018 [facility] Rizatriptan Benzoate (Maxalt) 10 Mg Tablet, Active 01/10/2018 [facility] Topiramate 25 Mg Tablet, Active 01/10/2018 [facility] HydrOXYzine HCl 1 tablet Orally Active 50 mg Orally 30 min before bedtime as needed for insomnia [place] 11/12/2014 [facility] Viibryd as directed Orally Active 10 & 20 & 40 MG Orally [place] 10/29/2014 [facility] Cyclobenzaprine HCl 1 tablet Orally Active 10 mg Orally once a day as needed for jaw pain [place] 10/29/2014 [facility] Viibryd 1 tablet with food Orally Active 40 mg Orally Once a day [place] 10/29/2014 [facility] Alprazolam 1 tablet Orally Active 0.25 MG Orally once a day as needed for anxiety Rachel 10/29/2014 [facility] Cefdinir 1 capsule Orally Active 300 MG Orally twice a day [place] 06/21/2014 [facility] Diflucan 1 tablet Orally Active 150 MG Orally Once; can repeat in 7 days [place] 06/21/2014 [facility] Tessalon 1 capsule as needed Orally Active 200 MG Orally Three times a day Rachel 05/07/2014 [facility] Promethazine-Codeine 5 ml as needed Orally Active 6.25-10 MG/5ML Orally every 6 hrs Rachel 05/07/2014 [facility] Augmentin 1 tablet Orally Active 875-125 MG Orally Twice a day [place] 05/07/2014 [facility] Vitamin D (Ergocalciferol) 1 capsule Orally Active 81663 UNIT Orally once per week [place] 01/23/2014 [facility] Vitamin D 2 tablet Orally Active 2000 UNIT Orally once a week Ghebranious [facility] Vitamin E 1 capsule Orally Active 200 UNIT Orally Once a day Ghebranious [facility] Estradiol 1 tablet Orally Active 1 MG Orally daily Rachel [facility] Amitriptyline Hcl 25 Mg Tablet Active [facility] Cetirizine Hcl (Zyrtec) 10 Mg Capsule Daily Active THERAPEUTICALLY SUBSTITUTED WITH LORATIDINE 10MG [facility] Dicyclomine Hcl 10 Mg Capsule Active [facility] Diphenhydramine Hcl (Benadryl) 25 Mg Capsule As Needed as needed for Itching Active [facility] Methymazole Three Times A Day Active [facility] Prednisone 10 Mg Tab As Needed as needed for Shortness Of Breath Active [facility] Propranolol Hcl 20 Mg Tablet Active [facility] Rizatriptan Benzoate (Maxalt) 10 Mg Tablet Active [facility] Allergies, Adverse Reactions, Alerts Substance Category Reaction Severity Reaction type Status Date Reported Comments Source Erythromycin Adverse Reaction rash Adverse Reaction Active 11/12/2014 [facility] Iodine ITCH,N/V,SOB Mild Allergy to Substance Active 11/18/2017 [facility] Erythromycin base RASH Mild Allergy to Substance Active 11/18/2017 [facility] Metronidazole JAW LOCK Mild Allergy to Substance Active 11/18/2017 [facility] Soy Mild Allergy to Substance Active 11/18/2017 [facility] Coconut oil Mild Allergy to Substance Active 01/10/2018 [facility] Immunizations Immunization Date Given Site Status Last Updated Comments Source Results Order Name Results Value Reference Range Date Interpretation Comments Source Automated urine sediment leukocyte count by microscopy (number/high power field) Automated urine sediment leukocyte count by microscopy (number/high power field) null 0 - 5 04/17/2018 [facility] Bacteria detection in urine sediment by light microscopy Bacteria detection in urine sediment by light microscopy FEW NONE 04/17/2018 [facility] Epithelial cells detection in urine sediment by light microscopy Epithelial cells detection in urine sediment by light microscopy MANY NONE 04/17/2018 [facility] Erythrocytes detection in urine sediment by light microscopy Erythrocytes detection in urine sediment by light microscopy null 0 - 5 04/17/2018 [facility] Serum or plasma choriogonadotropin ( test) detection Serum or plasma choriogonadotropin ( test) detection NEGATIVE NEGATIVE 04/17/2018 [facility] Specific gravity of Urine by Test strip Specific gravity of Urine by Test strip 1.015 1.010 - 1.025 04/17/2018 [facility] Urine clarity Urine clarity HAZY CLEAR 04/17/2018 [facility] Urine color determination Urine color determination YELLOW YELLOW 04/17/2018 [facility] Urine erythrocytes detection Urine erythrocytes detection NEGATIVE NEGATIVE 04/17/2018 [facility] Urine glucose detection Urine glucose detection NEGATIVE NEGATIVE 04/17/2018 [facility] Urine ketones detection by automated test strip Urine ketones detection by automated test strip TRACE NEGATIVE 04/17/2018 [facility] Urine leukocyte esterase detection by dipstick Urine leukocyte esterase detection by dipstick TRACE NEGATIVE 04/17/2018 [facility] Urine nitrite detection Urine nitrite detection NEGATIVE NEGATIVE 04/17/2018 [facility] Urine pH measurement by automated test strip Urine pH measurement by automated test strip 8 5 - 7 04/17/2018 [facility] Urine protein measurement by test strip (mass/volume) Urine protein measurement by test strip (mass/volume) NEGATIVE NEGATIVE 04/17/2018 [facility] Urine total bilirubin measurement (mass/volume) Urine total bilirubin measurement (mass/volume) NEGATIVE NEGATIVE 04/17/2018 [facility] Urine urobilinogen measurement by test strip (mass/volume) Urine urobilinogen measurement by test strip (mass/volume) 1 0.2 - 1 04/17/2018 [facility] Automated blood basophil count (count/volume) Automated blood basophil count (count/volume) 0.0 0.0 - 0.1 04/17/2018 [facility] Automated blood basophil count as percentage of total leukocytes Automated blood basophil count as percentage of total leukocytes 0.3 0.0 - 1.0 04/17/2018 [facility] Automated blood eosinophil count Automated blood eosinophil count 0.4 0.0 - 0.4 04/17/2018 [facility] Automated blood eosinophil count as percentage of total leukocytes Automated blood eosinophil count as percentage of total leukocytes 3.2 0.0 - 6.0 04/17/2018 [facility] Automated blood hematocrit (volume fraction) Automated blood hematocrit (volume fraction) 37.4 34.2 - 44.1 04/17/2018 [facility] Automated blood lymphocyte count as percentage ot total leukocytes Automated blood lymphocyte count as percentage ot total leukocytes 22.6 18.0 - 39.1 04/17/2018 [facility] Automated blood monocyte count as percentage of total leukocytes Automated blood monocyte count as percentage of total leukocytes 9.9 4.4 - 11.3 04/17/2018 [facility] Automated blood neutrophil count Automated blood neutrophil count 7.0 2.1 - 6.9 04/17/2018 [facility] Automated blood platelet count (count/volume) Automated blood platelet count (count/volume) 372 140 - 360 04/17/2018 [facility] Automated blood segmented neutrophil count as percentage of total leukocytes Automated blood segmented neutrophil count as percentage of total leukocytes 63.7 38.7 - 80.0 04/17/2018 [facility] Automated erythrocyte mean corpuscular hemoglobin (mass per erythrocyte) Automated erythrocyte mean corpuscular hemoglobin (mass per erythrocyte) 29.2 28 - 32 04/17/2018 [facility] Automated erythrocyte mean corpuscular hemoglobin concentration measurement (mass/volume) Automated erythrocyte mean corpuscular hemoglobin concentration measurement (mass/volume) 34.0 31 - 35 04/17/2018 [facility] Automated erythrocyte mean corpuscular volume Automated erythrocyte mean corpuscular volume 86.0 81 - 99 04/17/2018 [facility] Blood erythrocytes automated count (number/volume) Blood erythrocytes automated count (number/volume) 4.35 3.6 - 5.1 04/17/2018 [facility] Blood hemoglobin measurement (moles/volume) Blood hemoglobin measurement (moles/volume) 12.7 12.0 - 16.0 04/17/2018 [facility] Blood leukocytes automated count (number/volume) Blood leukocytes automated count (number/volume) 10.96 4.8 - 10.8 04/17/2018 [facility] Blood lymphocytes count (number/volume) Blood lymphocytes count (number/volume) 2.5 1.0 - 3.2 04/17/2018 [facility] Blood monocytes automated count (number/volume) Blood monocytes automated count (number/volume) 1.1 0.2 - 0.8 04/17/2018 [facility] Estimated glomerular filtration rate (GFR) determination Estimated glomerular filtration rate (GFR) determination null 60 04/17/2018 [facility] Fibrin D-dimer DDU measurement in platelet poor plasma (mass/volume) Fibrin D-dimer DDU measurement in platelet poor plasma (mass/volume) 0.48 0.00 - 0.45 04/17/2018 [facility] Free thyroxine index Free thyroxine index 5.9271 1.4 - 3.8 04/17/2018 [facility] Glucose measurement Glucose measurement 96 74 - 118 04/17/2018 [facility] Plasma globulin measurement (mass/volume) Plasma globulin measurement (mass/volume) 3.6 2.3 - 3.5 04/17/2018 [facility] Serum or plasma alanine aminotransferase measurement (enzymatic activity/volume) Serum or plasma alanine aminotransferase measurement (enzymatic activity/volume) 30 0 - 55 04/17/2018 [facility] Serum or plasma albumin measurement (mass/volume) Serum or plasma albumin measurement (mass/volume) 3.2 3.5 - 5.0 04/17/2018 [facility] Serum or plasma albumin/globulin mass ratio Serum or plasma albumin/globulin mass ratio 0.9 0.8 - 2.0 04/17/2018 [facility] Serum or plasma alkaline phosphatase measurement (enzymatic activity/volume) Serum or plasma alkaline phosphatase measurement (enzymatic activity/volume) 134 40 - 150 04/17/2018 [facility] Serum or plasma anion gap Serum or plasma anion gap 12.5 8 - 16 04/17/2018 [facility] Serum or plasma calcium measurement (mass/volume) Serum or plasma calcium measurement (mass/volume) 9.0 8.4 - 10.2 04/17/2018 [facility] Serum or plasma carbon dioxide, total measurement (moles/volume) Serum or plasma carbon dioxide, total measurement (moles/volume) 24 22 - 29 04/17/2018 [facility] Serum or plasma chloride measurement (moles/volume) Serum or plasma chloride measurement (moles/volume) 102 98 - 107 04/17/2018 [facility] Serum or plasma creatinine measurement (mass/volume) Serum or plasma creatinine measurement (mass/volume) 0.76 0.57 - 1.11 04/17/2018 [facility] Serum or plasma potassium measurement (moles/volume) Serum or plasma potassium measurement (moles/volume) 3.5 3.5 - 5.1 04/17/2018 [facility] Serum or plasma protein measurement (mass/volume) Serum or plasma protein measurement (mass/volume) 6.8 6.5 - 8.1 04/17/2018 [facility] Serum or plasma sodium measurement (moles/volume) Serum or plasma sodium measurement (moles/volume) 135 136 - 145 04/17/2018 [facility] Serum or plasma thyrotropin measurement by detection limit <=0.005 miu/l (units/volume) Serum or plasma thyrotropin measurement by detection limit <=0.005 miu/l (units/volume) 0.000 0.350 - 4.940 04/17/2018 [facility] Serum or plasma thyroxine (T4) measurement (mass/volume) Serum or plasma thyroxine (T4) measurement (mass/volume) 19.04 4.5 - 10.9 04/17/2018 [facility] Serum or plasma total bilirubin measurement (mass/volume) Serum or plasma total bilirubin measurement (mass/volume) 0.5 0.2 - 1.2 04/17/2018 [facility] Serum or plasma triiodothyronine resin uptake (T3RU) Serum or plasma triiodothyronine resin uptake (T3RU) 31.13 22.5 - 37.0 04/17/2018 [facility] Serum or plasma urea nitrogen measurement (mass/volume) Serum or plasma urea nitrogen measurement (mass/volume) 9 7 - 26 04/17/2018 [facility] Serum or plasma urea nitrogen/creatinine mass ratio Serum or plasma urea nitrogen/creatinine mass ratio 12 6 - 25 04/17/2018 [facility] Red Cell Distribution Width 12.1 11.7 - 14.4 04/17/2018 [facility] IM GRANULOCYTES % 0.3 0.0 - 1.0 04/17/2018 [facility] Absolute Immature Granulocyte (auto 0.03 0 - 0.1 04/17/2018 [facility] Aspartate Amino Transf (AST/SGOT) 26 5 - 34 04/17/2018 [facility] B-Type Natriuretic Peptide null 0 - 100 04/17/2018 [facility] Mucus detection in urine sediment by light microscopy Mucus detection in urine sediment by light microscopy FEW RARE 01/10/2018 [facility] Urine human chorionic gonadotropin (hCG) detection Urine human chorionic gonadotropin (hCG) detection NEGATIVE NEGATIVE 01/10/2018 [facility] Activated partial thromboplastin time (aPTT) in platelet poor plasma bycoagulation assay Activated partial thromboplastin time (aPTT) in platelet poor plasma bycoagulation assay 29.2 23.8 - 35.5 11/18/2017 [facility] INR in Platelet poor plasma by Coagulation assay INR in Platelet poor plasma by Coagulation assay 1.13 11/18/2017 [facility] Prothrombin time (PT) in platelet poor plasma by coagulation assay Prothrombin time (PT) in platelet poor plasma by coagulation assay 13.6 11.9 - 14.5 11/18/2017 [facility] Serum or plasma magnesium measurement (mass/volume) Serum or plasma magnesium measurement (mass/volume) 1.4 1.3 - 2.1 11/18/2017 [facility] Vital Signs Vital Sign Value Date Comments Source Weight 184 11/12/2014 [facility] Height 61 11/12/2014 [facility] Temperature Oral (F) 98.3 F 11/12/2014 [facility] Heart Rate 71 11/12/2014 [facility] Diastolic (mm Hg) 80 11/12/2014 [facility] Systolic (mm Hg) 110 11/12/2014 [facility] Weight 187 10/29/2014 [facility] Height 61 10/29/2014 [facility] Temperature Oral (F) 98.4 F 10/29/2014 [facility] Heart Rate 80 10/29/2014 [facility] Diastolic (mm Hg) 80 10/29/2014 [facility] Systolic (mm Hg) 104 10/29/2014 [facility] Weight 190 06/21/2014 [facility] Height 61 06/21/2014 [facility] Temperature Oral (F) 98.2 F 06/21/2014 [facility] Heart Rate 84 06/21/2014 [facility] Diastolic (mm Hg) 88 06/21/2014 [facility] Systolic (mm Hg) 132 06/21/2014 [facility] Weight 189 05/07/2014 [facility] Height 61 05/07/2014 [facility] Temperature Oral (F) 98.3 F 05/07/2014 [facility] Heart Rate 64 05/07/2014 [facility] Diastolic (mm Hg) 76 05/07/2014 [facility] Systolic (mm Hg) 108 05/07/2014 [facility] Weight 191 02/05/2014 [facility] Height 61 02/05/2014 [facility] Temperature Oral (F) 98.5 F 02/05/2014 [facility] Heart Rate 76 02/05/2014 [facility] Diastolic (mm Hg) 70 02/05/2014 [facility] Systolic (mm Hg) 108 02/05/2014 [facility] Weight 191 01/22/2014 [facility] Height 61 01/22/2014 [facility] Heart Rate 78 01/22/2014 [facility] Diastolic (mm Hg) 68 01/22/2014 [facility] Systolic (mm Hg) 102 01/22/2014 [facility] Height 60 01/09[facility] Weight 188 01/09/[facility] Temperature Oral (F) 98.9 F 01/09/2014 [facility] Heart Rate 76 01/09/2014 [facility] Systolic (mm Hg) 123 01/09/2014 [facility] Diastolic (mm Hg) 86 01/09/2014 [facility] Weight 189 01/04/2014 [facility] Height 61 01/04/2014 [facility] Heart Rate 76 01/04/2014 [facility] Diastolic (mm Hg) 72 01/04/2014 [facility] Systolic (mm Hg) 108 01/04/2014 [facility] Encounters Location Location Details Encounter Type Encounter Number Reason For Visit Attending Provider ADM Date DC Date Status Source [facility] follow up from hospital. [id number] 01/04/2014 01/04/2014 [facility] follow up from hospital. [id number] 01/04/2014 01/04/2014 [facility] follow up from hospital. [id number] 01/04/2014 01/04/2014 [facility] follow up from hospital. [id number] 01/04/2014 01/04/2014 [facility] follow up from hospital. [id number] 01/04/2014 01/04/2014 [facility] follow up from hospital. [id number] 01/04/2014 01/04/2014 [facility] follow up from hospital. [id number] 01/04/2014 01/04/2014 [facility] follow up from hospital. [id number] 01/04/2014 01/04/2014 [facility] follow up from hospital. [id number] 01/04/2014 01/04/2014 [facility] follow up from hospital. [id number] 01/04/2014 01/04/2014 [facility] follow up from hospital. [id number] 01/04/2014 01/04/2014 [facility] General Surgery 350 Office Visit [id number] Toan Blue MD 01/09/2014 01/09/2014 [facility] Lab Report [id number] Toan Blue MD 01/10/2014 01/10/2014 [facility] results [id number] 01/22/2014 01/22/2014 [facility] results [id number] 01/22/2014 01/22/2014 [facility] results [id number] 01/22/2014 01/22/2014 [facility] results [id number] 01/22/2014 01/22/2014 [facility] results [id number] 01/22/2014 01/22/2014 [facility] results [id number] 01/22/2014 01/22/2014 [facility] results [id number] 01/22/2014 01/22/2014 [facility] results [id number] 01/22/2014 01/22/2014 [facility] results [id number] 01/22/2014 01/22/2014 [facility] results [id number] 01/22/2014 01/22/2014 [facility] [facility] results [id number] 01/22/2014 01/22/2014 [facility] follow up on ultrasound results [id number] 02/05/2014 02/05/2014 [facility] follow up on ultrasound results [id number] 02/05/2014 02/05/2014 [facility] follow up on ultrasound results [id number] 02/05/2014 02/05/2014 [facility] follow up on ultrasound results [id number] 02/05/2014 02/05/2014 [facility] follow up on ultrasound results [id number] 02/05/2014 02/05/2014 [facility] follow up on ultrasound results [id number] 02/05/2014 02/05/2014 [facility] follow up on ultrasound results [id number] 02/05/2014 02/05/2014 [facility] follow up on ultrasound results [id number] 02/05/2014 02/05/2014 [facility] follow up on ultrasound results [id number] 02/05/2014 02/05/2014 [facility] follow up on ultrasound results [id number] 02/05/2014 02/05/2014 [facility] follow up on ultrasound results [id number] 02/05/2014 02/05/2014 [facility] raspatory infection [id number] 05/07/2014 05/07/2014 [facility] raspatory infection [id number] 05/07/2014 05/07/2014 [facility] raspatory infection [id number] 05/07/2014 05/07/2014 [facility] raspatory infection [id number] 05/07/2014 05/07/2014 [facility] raspatory infection [id number] 05/07/2014 05/07/2014 [facility] raspatory infection [id number] 05/07/2014 05/07/2014 [facility] raspatory infection [id number] 05/07/2014 05/07/2014 [facility] raspatory infection [id number] 05/07/2014 05/07/2014 [facility] Unknown [id number] 05/07/2014 05/07/2014 [facility] Unknown [id number] 05/07/2014 05/07/2014 [facility] Unknown [id number] 05/07/2014 05/07/2014 [facility] Unknown [id number] 05/07/2014 05/07/2014 [facility] Unknown [id number] 05/07/2014 05/07/2014 [facility] Unknown [id number] 05/07/2014 05/07/2014 [facility] Unknown [id number] 05/07/2014 05/07/2014 [facility] Unknown [id number] 05/07/2014 05/07/2014 [facility] Needs call back from Medical Staff [id number] 05/14/2014 05/14/2014 [facility] Needs call back from Medical Staff [id number] 05/14/2014 05/14/2014 [facility] Needs call back from Medical Staff [id number] 05/14/2014 05/14/2014 [facility] Needs call back from Medical Staff [id number] 05/14/2014 05/14/2014 [facility] Needs call back from Medical Staff [id number] 05/14/2014 05/14/2014 [facility] Needs call back from Medical Staff [id number] 05/14/2014 05/14/2014 [facility] Needs call back from Medical Staff [id number] 05/14/2014 05/14/2014 [facility] THYROID US/LYNJOAO [id number] 06/06/2014 06/06/2014 [facility] THYROID US/LYNZEE [id number] 06/06/2014 06/06/2014 [facility] THYROID US/LYNJOAO [id number] 06/06/2014 06/06/2014 [facility] THYROID US/LYNJOAO [id number] 06/06/2014 06/06/2014 [facility] THYROID US/LYNJOAO [id number] 06/06/2014 06/06/2014 [facility] THYROID US/LYNZEE [id number] 06/06/2014 06/06/2014 [facility] THYROID US/LYNZEE [id number] 06/06/2014 06/06/2014 [facility] BODYACHES/ FEVER [id number] 06/21/2014 06/21/2014 [facility] BODYACHES/ FEVER [id number] 06/21/2014 06/21/2014 [facility] BODYACHES/ FEVER [id number] 06/21/2014 06/21/2014 [facility] BODYACHES/ FEVER [id number] 06/21/2014 06/21/2014 [facility] BODYACHES/ FEVER [id number] 06/21/2014 06/21/2014 [facility] BODYACHES/ FEVER [id number] 06/21/2014 06/21/2014 [facility] BODYACHES/ FEVER [id number] 06/21/2014 06/21/2014 [facility] CONSULT-DEPRESSION [id number] 10/29/2014 10/29/2014 [facility] CONSULT-DEPRESSION [id number] 10/29/2014 10/29/2014 [facility] 2 week follow up [id number] 11/12/2014 11/12/2014 [facility] Departed Emergency Room [id number] NAREN PIKE MD 11/18/2017 11/18/2017 [facility] Departed Emergency Room [id number] SHIVAM GUEVARA MD 01/10/2018 01/10/2018 [facility] Departed Emergency Room [id number] PELON VASQUEZ MD 01/11/2018 01/11/2018 [facility] Departed Emergency Room [id number] ZARA TOTH MD 04/17/2018 04/17/2018 [facility] Procedures Procedure Code Date Perfomer Comments Source CT of abdomen and pelvis without contrast [id number] 01/10/2018 [place] [facility] X-ray of chest, two views [id number] 11/18/2017 [facility]
--- OUTSIDE RECORDS SUMMARY | 2018-09-21 23:21 | XMS REPORT | Clinical Summary ---
Author Author [facility] Organization [facility] Address Unknown Phone Unavailable Care Team Providers Care Risk Control Director Name Role Phone Kaya Campbell MD PCP Allergies Comments Active Allergy Reactions Severity Noted Date Coconut Oil Anaphylaxis High 07/12/2017 Erythromycin Rash Low 07/12/2017 Iodine Swelling 07/12/2017 Jaw pain and clenching Metronidazole Other (See High 07/14/2017 Comments) Soy Rash Low 07/12/2017 Medications End Date Status Medication Sig Dispensed Refills Start Date Active acetaminophen-codeine TAKE 1 TABLET 0 (TYLENOL WITH CODEINE #3) BY MOUTH 7 300-30 mg per tablet EVERY 6 HOURS NEEDED FOR ABDOMINAL PAIN. Active amitriptyline (ELAVIL) 25 TAKE 1 TABLET 1 MG tablet AT BEDTIME 7 Active ibuprofen (ADVIL,MOTRIN) TAKE 1 TABLET 0 600 MG tablet BY MOUTH 4 7 TIMES A DAY NEEDED Active montelukast (SINGULAIR) TAKE 1 TABLET 0 10 mg tablet BY MOUTH 7 DAILY AT 5PM Active predniSONE (DELTASONE) 20 Take 60 mg by 0 mg tablet mouth daily. 7 LAST DOSE WAS 02/12/18 Active propranolol (INDERAL) 20 Take 40 mg by 1 MG tablet mouth 2 (two) 7 times a day. Active rizatriptan STENOTYPIST TAKE 1 TABLET 2 (MAXALT-STENOTYPIST) 10 MG AT BEGINNING 7 disintegrating tablet OF HEADACHE MAY REPEAT IN 2 HOURS IF NEEDED Active topiramate (TOPAMAX) 100 Take 100 mg 1 MG tablet by mouth once 7 daily. Active traMADol (ULTRAM) 50 mg TAKE 1 TABLET 0 tablet BY MOUTH 7 EVERY 6 HOURS NEEDED FOR SEVERE PAIN Active dicyclomine (BENTYL) 10 Take 1 0 MG capsule capsule by 8 mouth 4 (four) times a day. Active diazePAM (VALIUM) 5 MG Take 5 mg by 0 tablet mouth every 6 (six) hours as needed for anxiety. Active methIMAzole (TAPAZOLE) 10 Please take 3 40 tablet 0 MG tablet tabs (30 mg) 8 in the AM, 2 tabs (20 mg) in the PM 02/13/2018 Discontinued fluticasone (FLONASE) 50 2 sprays by 11 mcg/actuation nasal spray Each Nare 7 route once daily. 11/14/2017 methylPREDNISolone follow 21 tablet 0 (MEDROL DOSEPAK) 4 mg package 8 tablet directions 12/09/2017 diphenhydrAMINE Take 1 10 capsule 0 (BENADRYL) 25 mg capsule capsule (25 8 mg total) by mouth every 6 (six) hours as needed for itching for up to 30 days. 02/13/2018 Discontinued methIMAzole (TAPAZOLE) 10 Take 20 mg by 3 MG tablet mouth 2 (two) 8 times a day with meals. 02/20/2018 traMADol (ULTRAM) 50 mg Take 1 tablet 20 tablet 0 tablet (50 mg total) 8 by mouth every 6 (six) hours as needed for moderate pain for up to 7 days. Active Problems Problem Noted Date Diverticulitis large intestine 07/13/2017 Encounters Care Team Description Date Type Specialty Kristi Bullard MD Graves disease (Primary Dx); Bilateral leg cramps 02/13/2018 Emergency Emergency Medicine Halima Manrique MD Allergic reaction, initial encounter (Primary Dx) 11/09/2017 Emergency Emergency Medicine after 09/20/2017 Social History Date Tobacco Use Types Packs/Day Years Used Former Smoker Smokeless Tobacco: Never Used Alcohol Use Drinks/Week oz/Week Comments Yes occasionally Sex Assigned at Date Recorded Not on file Industry Job Start Date Occupation Not on file Not on file Not on file Travel End Travel History Travel Start No recent travel history available. Last Filed Vital Signs Time Taken Vital Sign Reading 02/13/2018 6:05 PM CDT Blood Pressure 116/55 02/13/2018 6:05 PM CDT Pulse 82 02/13/2018 3:07 PM CDT Temperature 37 C (98.6 F) 02/13/2018 6:05 PM CDT Respiratory Rate 21 02/13/2018 6:05 PM CDT Oxygen Saturation 99% - Inhaled Oxygen - Concentration 02/13/2018 3:06 PM CDT Weight 81.2 kg (179 lb) 02/13/2018 3:06 PM CDT Height 152.4 cm (5') 02/13/2018 3:06 PM CDT Body Mass Index 34.96 Plan of Treatment Health Maintenance Due Date Last Done Comments CERVICAL CANCER SCREENING 1999 INFLUENZA VACCINE 03/02/2018 Procedures Comments Procedure Name Priority Date/Time Associated Diagnosis HCG QUALITATIVE, URINE Routine 02/13/2018 SCREEN 5:00 PM CDT URINALYSIS SCREEN AND STAT 02/13/2018 MICROSCOPY, WITH REFLEX 5:00 PM CDT TO CULTURE XR CHEST 1 VW PORTABLE STAT 02/13/2018 3:43 PM CDT THYROID STIMULATING STAT 02/13/2018 HORMONE 3:20 PM CDT T4 STAT 02/13/2018 3:20 PM CDT T4, FREE STAT 02/13/2018 3:20 PM CDT ZZESTIMATED GFR STAT 02/13/2018 3:20 PM CDT TROPONIN STAT 02/13/2018 3:20 PM CDT CREATINE KINASE, TOTAL STAT 02/13/2018 (CPK) 3:20 PM CDT COMPREHENSIVE METABOLIC STAT 02/13/2018 PANEL 3:20 PM CDT HC COMPLETE BLD COUNT STAT 02/13/2018 W/AUTO DIFF 3:20 PM CDT ECG 12-LEAD STAT 02/13/2018 3:11 PM CDT after 09/20/2017 Results * Urinalysis screen and microscopy, with reflex to culture (02/13/2018 5:00 PM CDT) Specimen site Clean catch [facility] DEPARTMENT OF PATHOLOGY AND GENOMIC MEDICINE Color, UA Yellow [facility] DEPARTMENT OF PATHOLOGY AND GENOMIC MEDICINE Appearance, UA Slightly-Cloudy [facility] DEPARTMENT OF PATHOLOGY AND GENOMIC MEDICINE Specific gravity, UA 1.015 1.001 - 1.035 [facility] DEPARTMENT OF PATHOLOGY AND GENOMIC MEDICINE pH, UA 7.0 5.0 - 8.5 [facility] DEPARTMENT OF PATHOLOGY AND GENOMIC MEDICINE Protein, UA Negative Negative [facility] DEPARTMENT OF PATHOLOGY AND GENOMIC MEDICINE Glucose, UA Negative Negative [facility] DEPARTMENT OF PATHOLOGY AND GENOMIC MEDICINE Ketones, UA Negative Negative [facility] DEPARTMENT OF PATHOLOGY AND GENOMIC MEDICINE Bilirubin, UA Negative Negative [facility] DEPARTMENT OF PATHOLOGY AND GENOMIC MEDICINE Blood, UA Negative Negative [facility] DEPARTMENT OF PATHOLOGY AND GENOMIC MEDICINE Nitrite, UA Negative Negative [facility] DEPARTMENT OF PATHOLOGY AND GENOMIC MEDICINE Urobilinogen, UA Negative <2.0 [facility] DEPARTMENT OF PATHOLOGY AND GENOMIC MEDICINE Leukocyte esterase, UA Negative Negative [facility] DEPARTMENT OF PATHOLOGY AND GENOMIC MEDICINE Epithelial cells, UA Many /HPF [facility] DEPARTMENT OF PATHOLOGY AND GENOMIC MEDICINE Round epithelial cells, Few 0 - 1 /HPF [facility] DEPARTMENT [facility] PATHOLOGY AND GENOMIC MEDICINE WBC, UA 0-5 0 - 4 /HPF [facility] DEPARTMENT OF PATHOLOGY AND GENOMIC MEDICINE RBC, UA 0-5 0 - 5 /HPF [facility] DEPARTMENT OF PATHOLOGY AND GENOMIC MEDICINE Bacteria, UA Trace None seen [facility] DEPARTMENT OF PATHOLOGY AND GENOMIC MEDICINE Yeast, UA None seen [facility] DEPARTMENT OF PATHOLOGY AND GENOMIC MEDICINE Yeast with pseudohyphae, None seen [facility] PATHOLOGY AND GENOMIC MEDICINE Specimen Urine Performing Organization Address City/[facility]ode Phone Number [facility] [id number] [place] [address] [place] [address] PATHOLOGY AND GENOMIC MEDICINE * hCG qualitative, urine screen (02/13/2018 5:00 PM CDT) [facility] qualitative, urine Negative Negative [facility] DEPARTMENT OF Comment: PATHOLOGY AND The manufacturers stated GENOMIC MEDICINE sensitivity of HcG test for serum is >/=10 mIU/ml and urine is >/=20mIU/ml. Specimen Urine Performing Organization Address City/[facility] Centercode Phone Number [address] [place] [address] PATHOLOGY AND GENOMIC MEDICINE * XR Chest 1 Vw Portable (02/13/2018 3:43 PM CDT) Narrative Performed At Examination: XR CHEST 1 VW PORTABLE RADIANT Clinical history: Cough Comparison: May 24, 2016 Impression: 1. The heart and pulmonary vasculature are within normal limits. 2. No infiltrate or effusion is demonstrated. 3. There is no acute osseous pathology. CONCLUSION: NO RADIOGRAPHIC EVIDENCE OF ACUTE CARDIOPULMONARY ABNORMALITY. [facility]-[id number] Procedure Note Interface, Radiology Results Incoming - 02/13/2018 3:53 PM CDT Examination: XR CHEST 1 VW PORTABLE Clinical history: Cough Comparison: May 24, 2016 Impression: 1. The heart and pulmonary vasculature are within normal limits. 2. No infiltrate or effusion is demonstrated. 3. There is no acute osseous pathology. CONCLUSION: NO RADIOGRAPHIC EVIDENCE OF ACUTE CARDIOPULMONARY ABNORMALITY. [facility]-[id number] Performing Organization Address City/[facility]/Zipcode Phone Number [facility] [address] [place] [address] * Estimated GFR (02/13/2018 3:20 PM CDT) GFR Non Af Amer >90 mL/min/1.73 m2 [facility] DEPARTMENT OF PATHOLOGY AND GENOMIC MEDICINE GFR Af Amer >90 mL/min/1.73 m2 [facility] DEPARTMENT OF Comment: PATHOLOGY AND Chronic kidney disease: <60 [facility] mL/min/1.73m2 Kidney failure: <15 mL/min/1.73m2 The estimated GFR is calculated from the IDMS-traceable Modification of Diet in Renal Disease Equation. The accuracy of the calculation is poor when the creatinine is normal. Calculated values >90 mL/min/1.73m2 are not reported. This equation has not been validated in children (<18 years), women, the elderly (>70 years), or ethnic groups other than Caucasians and Americans. Specimen Plasma specimen Performing Organization Address City/[facility]/Zipcode Phone Number [address] [place] [address] PATHOLOGY AND GENOMIC MEDICINE * Troponin (02/13/2018 3:20 PM CDT) Troponin <0.300 0.000 - 0.300 ng/mL [facility] DEPARTMENT OF Comment: PATHOLOGY AND 0.30 - 1.49 GENOMIC MEDICINE ng/mlMay indicate increased risk of acute coronary syndrome. >=1.5 ng/ml Consistent with acute myocardial infarction. The diagnostic value of a single normal or non-diagnostic result is questionable.Serial samples at 2-6 hour intervals are required to rule out acute myocardial injury. Specimen Plasma specimen Performing Organization Address City/[facility]/Zipcode Phone Number [facility] [address] [place] [address] PATHOLOGY AND GENOMIC MEDICINE * CBC with platelet and differential (02/13/2018 3:20 PM CDT) WBC 11.94 (H) 4.50 - 11.00 k/uL [facility] DEPARTMENT OF PATHOLOGY AND GENOMIC MEDICINE RBC 4.45 4.20 - 5.50 m/uL [facility] DEPARTMENT OF PATHOLOGY AND GENOMIC MEDICINE HGB 13.1 12.0 - 16.0 g/dL [facility] DEPARTMENT OF PATHOLOGY AND GENOMIC MEDICINE HCT 38.5 37.0 - 47.0 % [facility] DEPARTMENT OF PATHOLOGY AND GENOMIC MEDICINE MCV 86.5 82.0 - 100.0 fL [facility] DEPARTMENT OF PATHOLOGY AND GENOMIC MEDICINE MCH 29.4 27.0 - 34.0 pg [facility] DEPARTMENT OF PATHOLOGY AND GENOMIC MEDICINE MCHC 34.0 31.0 - 37.0 g/dL [facility] DEPARTMENT OF PATHOLOGY AND GENOMIC MEDICINE RDW - SD 38.6 37.0 - 55.0 fL [facility] DEPARTMENT OF PATHOLOGY AND GENOMIC MEDICINE MPV 9.8 8.8 - 13.2 fL [facility] DEPARTMENT OF PATHOLOGY AND GENOMIC MEDICINE Platelet count 299 150 - 400 k/uL [facility] DEPARTMENT OF PATHOLOGY AND GENOMIC MEDICINE Nucleated RBC 0.00 /100 WBC [facility] DEPARTMENT OF PATHOLOGY AND GENOMIC MEDICINE Neutrophils 71.3 (H) 39.0 - 69.0 % [facility] DEPARTMENT OF PATHOLOGY AND GENOMIC MEDICINE Lymphocytes 15.9 (L) 25.0 - 45.0 % [facility] DEPARTMENT OF PATHOLOGY AND GENOMIC MEDICINE Monocytes 7.4 0.0 - 10.0 % [facility] DEPARTMENT OF PATHOLOGY AND GENOMIC MEDICINE Eosinophils 4.7 0.0 - 5.0 % [facility] DEPARTMENT OF PATHOLOGY AND GENOMIC MEDICINE Basophils 0.2 0.0 - 1.0 % [facility] DEPARTMENT OF PATHOLOGY AND GENOMIC MEDICINE Specimen Blood Performing Organization Address City/[facility]/Zipcode Phone Number [facility] [address] [place] [address] PATHOLOGY AND GENOMIC MEDICINE * Thyroid stimulating hormone (02/13/2018 3:20 PM CDT) TSH <0.01 (L) 0.27 - 4.20 uIU/mL [facility] DEPARTMENT OF PATHOLOGY AND GENOMIC MEDICINE Specimen Plasma specimen Performing Organization Address [facility] [place] Phone Number [place] [address] [place] [address] PATHOLOGY AND GENOMIC MEDICINE * T4, free (02/13/2018 3:20 PM CDT) T4, free 2.75 (H) 0.90 - 1.70 ng/dL [facility] DEPARTMENT OF PATHOLOGY AND GENOMIC MEDICINE Specimen Plasma specimen Performing Organization Address [facility] [place] Phone Number [place] [address] [place] [address] PATHOLOGY AND GENOMIC [facility] * T4 (02/13/2018 3:20 PM CDT) T4 14.6 (H) 4.5 - 11.7 ug/dL [facility] DEPARTMENT OF PATHOLOGY AND GENOMIC MEDICINE Specimen Plasma specimen Performing Organization Address [facility] [place] Phone Number [address] [place] [address] PATHOLOGY AND [facility] * Creatine kinase, total (CPK) (02/13/2018 3:20 PM CDT) Creatine kinase 96 26 - 192 U/L [facility] DEPARTMENT OF PATHOLOGY AND GENOMIC MEDICINE Specimen Plasma specimen Performing Organization Address [facility] [place] Phone Number [address] [place] [address] PATHOLOGY AND GENOMIC MEDICINE * Comprehensive metabolic panel (02/13/2018 3:20 PM CDT) Sodium 140 135 - 148 mEq/L [facility] DEPARTMENT OF PATHOLOGY AND GENOMIC MEDICINE Potassium 4.0 3.5 - 5.0 mEq/L [facility] DEPARTMENT OF PATHOLOGY AND GENOMIC MEDICINE Chloride 102 98 - 112 mEq/L [facility] DEPARTMENT OF PATHOLOGY AND GENOMIC MEDICINE CO2 22 (L) 24 - 31 mEq/L [facility] DEPARTMENT OF PATHOLOGY AND GENOMIC MEDICINE Anion gap 16@ANIO (H) 7 - 15 mEq/L [facility] DEPARTMENT OF PATHOLOGY AND GENOMIC MEDICINE BUN 11 6 - 20 mg/dL [facility] DEPARTMENT OF PATHOLOGY AND GENOMIC MEDICINE Creatinine 0.6 0.5 - 0.9 mg/dL [facility] DEPARTMENT OF PATHOLOGY AND GENOMIC MEDICINE Glucose 148 (H) 65 - 99 mg/dL [facility] DEPARTMENT OF PATHOLOGY AND GENOMIC MEDICINE Calcium 9.0 8.3 - 10.2 mg/dL [facility] DEPARTMENT OF PATHOLOGY AND GENOMIC MEDICINE Protein 6.6 6.3 - 8.3 g/dL [facility] DEPARTMENT OF Comment: PATHOLOGY AND GENOMIC MEDICINE 4.6-7.0 g/dL 1 week 4.4-7.6 g/dL 7 months-1year 5.1-7.3 g/dL 1-2 years5.6-7 .5 g/dL >3 years6.0-8 .0 g/dL 18-150 6.3-8.3 g/dL Albumin 3.5 3.5 - 5.0 g/dL [facility] DEPARTMENT OF PATHOLOGY AND GENOMIC MEDICINE A/G ratio 1.1 0.7 - 3.8 [facility] DEPARTMENT OF PATHOLOGY AND GENOMIC MEDICINE Alkaline phosphatase 158 (H) 35 - 104 U/L [facility] DEPARTMENT OF PATHOLOGY AND GENOMIC MEDICINE AST 23 10 - 35 U/L [facility] DEPARTMENT OF PATHOLOGY AND GENOMIC MEDICINE ALT 38 5 - 50 U/L [facility] DEPARTMENT OF PATHOLOGY AND GENOMIC MEDICINE Total bilirubin 0.3 0.0 - 1.2 mg/dL [facility] DEPARTMENT OF PATHOLOGY AND GENOMIC MEDICINE Specimen Plasma specimen Performing Organization Address City/State/[facility]ode Phone Number [facility] [place] [address] [place] [address] PATHOLOGY AND GENOMIC MEDICINE * ECG 12 lead (02/13/2018 3:11 PM CDT) Ventricular rate 87 [facility]USE Atrial rate 87 [facility] OK interval 122 [facility] QRSD interval 92 [facility] QT interval 348 [facility] QTC interval 418 [facility] P axis 1 40 [facility] QRS axis 1 36 [facility] T wave axis 62 [facility]USE EKG impression Normal sinus rhythm-Normal [facility] MUSE ECG-In automated comparison with ECG of 14-APR-2016 05:52,-Nonspecific T wave abnormality now evident in Lateral leads- -Also Electronically Signed By Moncho Solo MD ([id number])on 02/14/2018 7:08:26 AM Procedure Note Sawyer Bullard-Donal Hodge MD - 02/13/2018 3:10 PM CDT Emergency Department Provider Note Location: [facility] ED Patient ID: Smitha Kumar is a 37 y.o. female. Chief Complaint Chief Complaint Patient presents with Rapid Heart Rate Tingling History of Present Illness 37 y.o. female presents to the ED with leg pain. Patient reports cramping to bilateral leg extremities onset yesterday, hx of Grave's disease for 6 m.o. From her last lab results: free T4 2.5, TSH 0.0 and Alkaline Phosphate 169. Associated symptoms include: palpitations that are nml for her and nausea. Patient denies CP, SOB, or V/D. History provided by: Patient japanese interpreter used: No Leg Pain Location: Leg Injury: no Leg location: L lower leg and R lower leg Pain details: Quality: Cramping Radiates to: Does not radiate Severity: Moderate Onset quality: Sudden Timing: Intermittent Progression: Unchanged Chronicity: New Dislocation: no Foreign body present: No foreign bodies Tetanus status: Unknown Prior injury to area: No Relieved by: Nothing Worsened by: Activity Ineffective treatments: Ice, movement, elevation, immobilization and rest Associated symptoms: back pain, numbness and tingling Associated symptoms: no fever and no neck pain Risk factors: no concern for non-accidental trauma, no frequent fractures, no known bone disorder, no obesity and no recent illness History Allergies Allergies Allergen Reactions Coconut Oil Anaphylaxis Metronidazole Other (See Comments) Jaw pain and clenching Iodine Swelling Erythromycin Rash Soy Rash Past Medical History Past Medical History: Diagnosis Date Angio-edema Cervical cancer Diverticulosis Graves disease Migraines Past Surgical History Past Surgical History: Procedure Laterality Date APPENDECTOMY CHOLECYSTECTOMY HYSTERECTOMY Past Family History No family history on file. Past Social History Social History Social History Main Topics Smoking status: Former Smoker Smokeless tobacco: Never Used Alcohol use Yes Comment: occasionally Drug use: No Sexual activity: Defer Past Social History Narrative Social History Social History Narrative No narrative on file Medications Discharge Medication List as of 02/13/2018 5:49 PM CONTINUE these medications which have NOT CHANGED Details diazePAM (VALIUM) 5 MG tablet Take 5 mg by mouth every 6 (six) hours as needed for anxiety., Historical Med dicyclomine (BENTYL) 10 MG capsule Take 1 capsule by mouth 4 (four) times a day., Starting Wed01/25/2018, Historical Med acetaminophen-codeine (TYLENOL WITH CODEINE #3) 300-30 mg per tablet TAKE 1 TABLET BY MOUTH EVERY 6 HOURS NEEDED FOR ABDOMINAL PAIN., Historical Med amitriptyline (ELAVIL) 25 MG tablet TAKE 1 TABLET AT BEDTIME, Historical Med ibuprofen (ADVIL,MOTRIN) 600 MG tablet TAKE 1 TABLET BY MOUTH 4 TIMES A DAY NEEDED, Historical Med montelukast (SINGULAIR) 10 mg tablet TAKE 1 TABLET BY MOUTH DAILY AT 5PM, Historical Med predniSONE (DELTASONE) 20 mg tablet Take 60 mg by mouth daily. LAST DOSE WAS 02/12/18 , Starting Wed07/09/2017, Historical Med propranolol (INDERAL) 20 MG tablet Take 40 mg by mouth 2 (two) times a day. , Starting Wed05/04/2017, Historical Med rizatriptan STENOTYPIST (MAXALT-STENOTYPIST) 10 MG disintegrating tablet TAKE 1 TABLET AT BEGINNING OF HEADACHE MAY REPEAT IN 2 HOURS IF NEEDED, Historical Med topiramate (TOPAMAX) 100 MG tablet Take 100 mg by mouth once daily., Starting 05/09/2017, Until Discontinued, Historical Med !! traMADol (ULTRAM) 50 mg tablet TAKE 1 TABLET BY MOUTH EVERY 6 HOURS NEEDED FOR SEVERE PAIN, Historical Med !! - Potential duplicate medications found. Please discuss with provider. Discharge Medication List as of 02/13/2018 5:49 PM START taking these medications Details !! traMADol (ULTRAM) 50 mg tablet Take 1 tablet (50 mg total) by mouth every 6 (six) hours as needed for moderate pain for up to 7 days., Starting 02/13/2018, Until 02/20/2018, Print !! - Potential duplicate medications found. Please discuss with provider. Review of Systems Review of Systems Constitutional: Negative for chills and fever. HENT: Negative for congestion and rhinorrhea. Eyes: Negative for pain and redness. Gastrointestinal: Positive for nausea. Negative for abdominal pain and diarrhea. Genitourinary: Negative for dysuria and flank pain. Musculoskeletal: Positive for back pain. Negative for neck pain. Skin: Negative for rash and wound. Neurological: Negative for headaches. Psychiatric/Behavioral: Negative for agitation and confusion. Physical Exam Vitals: 02/13/18 1805 BP: 116/55 Pulse: 82 Resp: 21 Temp: SpO2: 99% Physical Exam Constitutional: She is oriented to person, place, and time. She appears well- developed and well-nourished. HENT: Head: Normocephalic and atraumatic. Eyes: Conjunctivae and EOM are normal. Neck: Normal range of motion. Neck supple. Cardiovascular: Normal rate, regular rhythm and normal heart sounds. Pulmonary/Chest: Effort normal and breath sounds normal. No respiratory distress. Abdominal: Soft. She exhibits no distension. There is no tenderness. Musculoskeletal: Normal range of motion. She exhibits no edema. Right lower leg: She exhibits no swelling. Left lower leg: She exhibits no swelling. Calve pain w/ full ROM. Neurological: She is alert and oriented to person, place, and time. Coordination normal. Skin: Skin is warm and dry. No rash noted. Psychiatric: She has a normal mood and affect. Her behavior is normal. Nursing note and vitals reviewed. ED Course ED Course as of Feb 15 1616 Sun Feb 13, 2018 1548 Endocrine: Everett Sanches [CC] 1549 No evidence of DVT. Currently on methimazole and propranolol. Low suspicion for thyroid storm at this time. Showed no altered mental status. She has had cramping in her calves bilaterally. No chest pain or shortness of breath. Will give fluids and Toradol. Labs this time. [NW] 1624 She has an elevated T4 and free T4 with a low TSH. This is consistent with her prior labs. Patient is normotensive, not tachycardic. 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 [NW] [address] Mcelroy - recommends methimazole 30mg in am and 20 mg in PM [NW] 1749 Patient otherwise no acute distress. We will discharge her home. [NW] 1750 I had a detailed discussion with the patient and/or guarding regarding: the historical points, exam findings, and any diagnostic results supporting the discharge diagnosis. Instructions reviewed with the patient/family and verbalizes understanding. The patient also understands the importance of follow up with PCP. Questions were answered. [NW] ED Course User Index [CC] Therese Parsons [NW] Kristi Bullard MD Clinical Impressions as of Feb 15 1616 Graves disease Bilateral leg cramps [facility] MDM Number of Diagnoses or Management Options Bilateral leg cramps: new and requires workup Graves disease: new and requires workup Amount and/or Complexity of Data Reviewed Clinical lab tests: ordered and reviewed Tests in the radiology section of CPT: ordered and reviewed Tests in the medicine section of CPT: ordered and reviewed Review and summarize past medical records: yes Discuss the patient with other providers: yes Independent visualization of images, tracings, or specimens: yes Risk of Complications, Morbidity, and/or Mortality Presenting problems: moderate Diagnostic procedures: moderate Management options: moderate Patient Progress Patient progress: stable Labs Results for orders placed or performed during the hospital encounter of 02/13/18 CBC with platelet and differential Result Value Ref Range WBC 11.94 (H) 4.50 - 11.00 k/uL RBC 4.45 4.20 - 5.50 m/uL HGB 13.1 12.0 - 16.0 g/dL HCT 38.5 37.0 - 47.0 % MCV 86.5 82.0 - 100.0 fL MCH 29.4 27.0 - 34.0 pg MCHC 34.0 31.0 - 37.0 g/dL RDW - SD 38.6 37.0 - 55.0 fL MPV 9.8 8.8 - 13.2 fL Platelet count 299 150 - 400 k/uL Nucleated RBC 0.00 /100 WBC Neutrophils 71.3 (H) 39.0 - 69.0 % Lymphocytes 15.9 (L) 25.0 - 45.0 % Monocytes 7.4 0.0 - 10.0 % Eosinophils 4.7 0.0 - 5.0 % Basophils 0.2 0.0 - 1.0 % Comprehensive metabolic panel Result Value Ref Range Sodium 140 135 - 148 mEq/L Potassium 4.0 3.5 - 5.0 mEq/L Chloride 102 98 - 112 mEq/L CO2 22 (L) 24 - 31 mEq/L Anion gap 16@ANIO (H) 7 - 15 mEq/L BUN 11 6 - 20 mg/dL Creatinine 0.6 0.5 - 0.9 mg/dL Glucose 148 (H) 65 - 99 mg/dL Calcium 9.0 8.3 - 10.2 mg/dL Protein 6.6 6.3 - 8.3 g/dL Albumin 3.5 3.5 - 5.0 g/dL A/G ratio 1.1 0.7 - 3.8 Alkaline phosphatase 158 (H) 35 - 104 U/L AST 23 10 - 35 U/L ALT 38 5 - 50 U/L Total bilirubin 0.3 0.0 - 1.2 mg/dL Creatine kinase, total (CPK) Result Value Ref Range Creatine kinase 96 26 - 192 U/L Troponin Result Value Ref Range Troponin <0.300 0.000 - 0.300 ng/mL Urinalysis screen and microscopy, with reflex to culture Result Value Ref Range Specimen site Clean catch Color, UA Yellow Appearance, UA Slightly-Cloudy Specific gravity, UA 1.015 1.001 - 1.035 pH, UA 7.0 5.0 - 8.5 Protein, UA Negative Negative Glucose, UA Negative Negative Ketones, UA Negative Negative Bilirubin, UA Negative Negative Blood, UA Negative Negative Nitrite, UA Negative Negative Urobilinogen, UA Negative <2.0 Leukocyte esterase, UA Negative Negative Epithelial cells, UA Many /HPF Round epithelial cells, UA Few 0 - 1 /HPF WBC, UA 0-5 0 - 4 /HPF RBC, UA 0-5 0 - 5 /HPF Bacteria, UA Trace None seen Yeast, UA None seen Yeast with pseudohyphae, UA None seen hCG qualitative, urine screen Result Value Ref Range hCG qualitative, urine Negative Negative Estimated GFR Result Value Ref Range GFR Non Af Amer >90 mL/min/1.73 m2 GFR Af Amer >90 mL/min/1.73 m2 T4, free Result Value Ref Range T4, free 2.75 (H) 0.90 - 1.70 ng/dL T4 Result Value Ref Range T4 14.6 (H) 4.5 - 11.7 ug/dL Thyroid stimulating hormone Result Value Ref Range TSH <0.01 (L) 0.27 - 4.20 uIU/mL ECG 12 lead Result Value Ref Range Ventricular rate 87 Atrial rate 87 OK interval 122 QRSD interval 92 QT interval 348 QTC interval 418 P axis 1 40 QRS axis 1 36 T wave axis 62 EKG impression Normal sinus rhythm-Normal ECG-In automated comparison with ECG of 14-APR-2016 05:52,-Nonspecific T wave abnormality now evident in Lateral leads- -Also Radiology No results found. Procedures ECG 12 lead Date/Time: 02/13/2018 3:18 PM Performed by: KRISTI BULLARD Authorized by: KRISTI BULLARD ECG reviewed by ED Physician in the absence of a net developer software engineer c: yes Interpretation: Interpretation: normal Rate: ECG rate: 87 ECG rate assessment: normal Rhythm: Rhythm: sinus rhythm Ectopy: Ectopy: none QRS: QRS axis: Normal Conduction: Conduction: normal ST segments: ST segments: Normal T waves: T waves: normal Differential Diagnoses The differential diagnosis includes but not limited to musculoskeletal pain, strain, sprain, Fracture, dislocation, subluxation, effusion, infection, ligamentous or tendon injury, compartment syndrome, masses and or lesions, atrial fibrillation, SVT, ACS. DDX includes causes considered but not specified given they were low prob or unlikely to cause immediate or disability. Workup for unlisted, unlikely, or benign causes would likely have yielded harm exceeding benefit. Final Diagnoses Final diagnoses: Graves disease Bilateral leg cramps Disposition This patient has a disposition of Discharge. ED Attestations Scribe Attestation: This document is recorded by Therese Parsons acting as a scribe under the direction and presence of KRISTI BULLARD. Provider attestation of scribe: Kristi Bullard MD: I personally performed the services recorded by the scribe in my presence. I confirm the scribe's documentation has been reviewed by me to accurately record my work, treatment, procedures, and medical decision making. Therese Parsons 02/13/18 1551 Kristi Bullard MD 02/14/18 1617 Performing Organization Address City/State/Zipcode Phone Number [facility] [address] [place] [address] after 09/20/2017 Insurance Payer Benefit Subscriber ID Type Phone Address Plan / Group CIG[employer]TE CIGCHANTE OPEN xxxxxxxxxxx O ACCESS/NET WORK Advance Directives Patient has advance care planning documents, and code status on file. For more i nformation, please contact: Phi Garcia [address] [place] [address] Date Inactivated Comments Code Status Date Activated 07/15/2017 8:49 PM Full Code 07/13/2017 4:59 AM Code Status decision reached by: Patient
[2018-09-21] MEDS ORDERED: KETOROLAC TROMETHAMINE 30 MG/ML VIAL IV STA (23:42)
--- NOTE | 2018-09-22 00:24 | Diagnostic Imaging Report ---
EXAMINATION: CHEST 2 VIEWS INDICATION: ^CHEST PAIN ^[id number] ^[id number] ^Y COMPARISON: 04/17/2018 FINDINGS: PA and lateral views TUBES and LINES: None. LUNGS: Lungs are well inflated. Unchanged mild central peribronchovascular thickening/cuffing. PLEURA: No pleural effusion or pneumothorax. HEART AND MEDIASTINUM: The cardiomediastinal silhouette is unremarkable. BONES AND SOFT TISSUES: No acute osseous lesion. Soft tissues are unremarkable. UPPER ABDOMEN: No free air under the diaphragm. IMPRESSION: Unchanged mild central peribronchovascular thickening/cuffing. Otherwise, unremarkable. Signed by: Dr. Cristopher Villafana MD on 09/22/2018 12:20 AM
[2018-09-22 00:32] LABS: BASOPHILS % 0.4 % (0.0-1.0); EOSINOPHILS # (AUTO) 0.4 (0.0-0.4); EOSINOPHILS % 5.1 % (0.0-6.0); HEMATOCRIT 40.6 % (34.2-44.1); HEMOGLOBIN 13.4 g/dL (12.0-16.0); LYMPHOCYTES # (AUTO) 2.6 (1.0-3.2); LYMPHOCYTES % 35.6 % (18.0-39.1); MEAN CORPUSCULAR HEMOGLOBIN 28.6 pg (28-32); MEAN CORPUSCULAR VOLUME 86.8 fL (81-99); MONOCYTES # (AUTO) 0.7 (0.2-0.8); MONOCYTES % 9.6 % (4.4-11.3); NEUTROPHILS # (AUTO) 3.5 (2.1-6.9); NEUTROPHILS % 49.2 % (38.7-80.0); PLATELET COUNT 344 x10e3/uL (140-360); RED BLOOD COUNT 4.68 x10e6/uL (3.6-5.1); RED CELL DISTRIBUTION WIDTH 12.7 % (11.7-14.4)
[2018-09-22 00:47] LABS: ALANINE AMINOTRANSFERASE 18 IU/L (0-55); ALBUMIN 3.3 g/dL (3.5-5.0); ALKALINE PHOSPHATASE 126 IU/L (40-150); ANION GAP 14.3 mmol/L (8-16); BLOOD UREA NITROGEN 9 mg/dL (7-26); BUN/CREATININE RATIO 13 (6-25); CALCIUM 8.9 mg/dL (8.4-10.2); CARBON DIOXIDE 19 mmol/L (22-29); CHLORIDE 108 mmol/L (98-107); CREATINE KINASE 42 IU/L (29-168); CREATININE, SERUM 0.68 mg/dL (0.57-1.11); EST GLOMERULAR FILTRATION RATE > 60 ML/MIN (60-); GLUCOSE 102 mg/dL (74-118); POTASSIUM 3.3 mmol/L (3.5-5.1); SODIUM 138 mmol/L (136-145)
[2018-09-22] MEDS ORDERED: ONDANSETRON HCL INJ 2MG/ML 2ML 2 MG/ML VIAL IV STA (00:51)
[2018-09-22 01:19] LABS: CLARITY,URINE CLOUDY (CLEAR); COLOR,URINE YELLOW (YELLOW); KETONES,URINE NEGATIVE (NEGATIVE); LEUKOCYTE ESTERASE ,URINE NEGATIVE (NEGATIVE); NITRITE,URINE POSITIVE (NEGATIVE); PROTEIN,URINE DIPSTICK NEGATIVE (NEGATIVE); URINE UROBILINOGEN 1 mg/dL (0.2 - 1)
[2018-09-22 01:20] LABS: BILIRUBIN,URINE NEGATIVE (NEGATIVE)
[2018-09-22 01:21] LABS: PREGNANCY TEST, URINE NEGATIVE (NEGATIVE)
[2018-09-22 01:28] LABS: BACTERIA,URINE MANY /HPF; EPITHELIAL CELLS,URINE FEW /LPF; RBC,URINE 0-5 /HPF (0-5)
[2018-09-22] MEDS ORDERED: CEFTRIAXONE SOD 1 GM/NS 50 ML 50 ML IV ONE (01:30)
[2018-09-22 02:06] VITALS: BP 118/73
[2018-09-22] MEDS ORDERED: DIPHENHYDRAMINE HCL 25 MG CAP PO ONE (03:00)
== END 2018-09-22 03:13 | disposition home or self-care (01) ==
LOC: ER 23:16
DX: R07.89 Other chest pain (principal); N30.90 Cystitis, unspecified without hematuria; E05.00 Thyrotoxicosis with diffuse goiter without thyrotoxic crisis or storm; Z85.51 Personal history of malignant neoplasm of bladder; Z85.43 Personal history of malignant neoplasm of ovary; Z87.19 Personal history of other diseases of the digestive system
CPT/HCPCS: 36415; 71046; 80053; 81001; 81025; 82550; 82553; 84484; 85025; 85379; 93005; 99284; J0696; J1885; J2405

== ENCOUNTER 2019-01-05 16:27 | Emergency (ER) | payer SELFPAY ==
[~2019-01-05] VITALS: Ht 152.4 cm; Wt 76.2 kg
--- OUTSIDE RECORDS SUMMARY | 2019-01-05 16:32 | XMS REPORT | Clinical Summary ---
Author Author [facility] Organization [facility] Address Unknown Phone Unavailable Care Team Providers Care Material Assistant Name Role Phone Kaya Campbell MD PCP [...] (two) 7 times a day. Active rizatriptan CUTTER WET MACHINE TAKE 1 TABLET 2 (MAXALT-CUTTER WET MACHINE) 10 MG AT BEGINNING 7 disintegrating tablet [...] spray Each Nare 7 route once daily. 02/13/2018 Discontinued methIMAzole (TAPAZOLE) 10 Take 20 [...] Bilateral leg cramps 02/13/2018 Emergency Emergency Medicine after 01/04/2018 Social History Date Tobacco Use Types Packs/Day [...] Health Maintenance Due Date Last Done Comments INFLUENZA VACCINE 03/02/2019 Procedures Comments Procedure Name Priority Date/Time Associated [...] 12-LEAD STAT 02/13/2018 3:11 PM CDT after 01/04/2018 Results * Urinalysis screen and microscopy, with reflex to culture (02/13/2018 5:00 PM CDT) Specimen site Clean catch [facility] DEPARTMENT OF PATHOLOGY AND GENOMIC MEDICINE Color, UA Yellow [facility] DEPARTMENT OF PATHOLOGY AND GENOMIC MEDICINE Appearance, UA Slightly-Cloudy [facility] DEPARTMENT OF PATHOLOGY AND GENOMIC MEDICINE Specific 1.015 1.001 - 1.035 [facility] gravity, DEPARTMENT OF PATHOLOGY AND GENOMIC MEDICINE pH, UA 7.0 5.0 - 8.5 [facility] DEPARTMENT OF PATHOLOGY AND GENOMIC MEDICINE Protein, UA Negative Negative [facility] DEPARTMENT OF PATHOLOGY AND GENOMIC MEDICINE Glucose, UA Negative Negative [facility] DEPARTMENT OF PATHOLOGY AND GENOMIC MEDICINE Ketones, UA Negative Negative [facility] DEPARTMENT OF PATHOLOGY AND GENOMIC MEDICINE Bilirubin, UA Negative Negative [facility] DEPARTMENT OF PATHOLOGY AND GENOMIC MEDICINE Blood, UA Negative Negative [facility] DEPARTMENT OF PATHOLOGY AND GENOMIC MEDICINE Nitrite, UA Negative Negative [facility] DEPARTMENT OF PATHOLOGY AND GENOMIC MEDICINE Urobilinogen, Negative <2.0 [facility] DEPARTMENT OF PATHOLOGY AND GENOMIC MEDICINE Leukocyte Negative Negative [facility] esterase, DEPARTMENT OF PATHOLOGY AND GENOMIC MEDICINE Epithelial Many /HPF [facility] cells, DEPARTMENT OF PATHOLOGY AND GENOMIC MEDICINE Round Few 0 - 1 /HPF [facility] epithelial DEPARTMENT OF cells, PATHOLOGY AND GENOMIC MEDICINE WBC, UA 0-5 0 - 4 /HPF [facility] DEPARTMENT OF PATHOLOGY AND GENOMIC MEDICINE RBC, UA 0-5 0 - 5 /HPF [facility] DEPARTMENT OF PATHOLOGY AND GENOMIC MEDICINE Bacteria, UA Trace None seen [facility] DEPARTMENT OF PATHOLOGY AND GENOMIC MEDICINE Yeast, UA None seen [facility] DEPARTMENT OF PATHOLOGY AND GENOMIC MEDICINE Yeast with None seen [facility] pseudohyphae, DEPARTMENT OF PATHOLOGY AND GENOMIC MEDICINE Specimen Urine Performing Organization Address [facility] Phone Number [facility] [place] [id number] [place] [address] [place] [address] PATHOLOGY AND GENOMIC MEDICINE * hCG qualitative, urine screen (02/13/2018 5:00 PM CDT) hCG Negative Negative [facility] qualitative, Comment: DEPARTMENT OF urine The manufacturers stated PATHOLOGY AND sensitivity of HcG test for GENOMIC serum is >/=10 MEDICINE mIU/ml and urine is >/=20mIU/ml. Specimen Urine Performing Organization Address [facility] Phone Number [facility] [address] [id number] [place] [address] [place] [address] PATHOLOGY AND GENOMIC MEDICINE * XR Chest 1 Vw Portable (02/13/2018 3:43 PM CDT) Specimen Narrative Performed At Examination: XR CHEST 1 VW PORTABLE RADIANT Clinical history: Cough Comparison: May 24, 2016 Impression: 1. The heart and pulmonary vasculature are within normal limits. 2. No infiltrate or effusion is demonstrated. 3. There is no acute osseous pathology. CONCLUSION: NO RADIOGRAPHIC EVIDENCE OF ACUTE CARDIOPULMONARY ABNORMALITY. [facility]-[id number] Procedure Note Interface, Radiology Results Incoming - 02/13/2018 3:53 PM CDT Examination: XR CHEST 1 VW PORTABLE Clinical history: Cough Comparison: May 24, 2016 Impression: 1. The heart and pulmonary vasculature are within normal limits. 2. No infiltrate or effusion is demonstrated. 3. There is no acute osseous pathology. CONCLUSION: NO RADIOGRAPHIC EVIDENCE OF ACUTE CARDIOPULMONARY ABNORMALITY. [facility]-[id number] Performing Organization Address City/[facility]/Zipcode Phone Number [facility] [place] [address] * Estimated GFR (02/13/2018 3:20 PM CDT) [facility] GFR Non Af Amer >90 mL/min/1.73 m2 [facility] DEPARTMENT OF PATHOLOGY AND GENOMIC MEDICINE GFR Af Amer >90 mL/min/1.73 m2 [facility] Comment: DEPARTMENT OF Chronic kidney disease: <60 PATHOLOGY AND mL/min/1.73m2 GENOMIC Kidney failure: <15 MEDICINE mL/min/1.73m2 The estimated GFR is calculated from [...] Americans. Specimen Plasma specimen Performing Organization Address [facility] Phone Number [address] [place] [id number] PATHOLOGY AND [facility] MEDICINE * Troponin (02/13/2018 3:20 PM CDT) [facility] Troponin <0.300 0.000 - 0.300 ng/mL [facility] Comment: DEPARTMENT OF 0.30 - 1.49 PATHOLOGY AND ng/mlMay GENOMIC indicate increased risk of MEDICINE acute coronary syndrome. >=1.5 ng/ml Consistent with acute myocardial infarction. The diagnostic value of a single normal or non-diagnostic result is questionable.Serial samples at 2-6 hour intervals are required to rule out acute myocardial injury. Specimen Plasma specimen Performing Organization Address [facility] Phone Number [facility] DEPARTMENT [address] [place] [address] PATHOLOGY AND GENOMIC MEDICINE * CBC with platelet and differential (02/13/2018 3:20 PM CDT) WBC 11.94 (H) 4.50 - 11.00 k/uL [facility] DEPARTMENT OF PATHOLOGY AND GENOMIC MEDICINE RBC 4.45 4.20 - 5.50 m/uL [facility] DEPARTMENT OF PATHOLOGY AND GENOMIC MEDICINE HGB 13.1 12.0 - 16.0 g/dL [facility] DEPARTMENT OF PATHOLOGY AND GENOMIC MEDICINE HCT 38.5 37.0 - 47.0 % [facility] DEPARTMENT OF PATHOLOGY AND GENOMIC MEDICINE MCV 86.5 82.0 - 100.0 fL [facility] DEPARTMENT OF PATHOLOGY AND GENOMIC MEDICINE MCH 29.4 27.0 - 34.0 pg [facility] DEPARTMENT OF PATHOLOGY AND GENOMIC MEDICINE MCHC 34.0 31.0 - 37.0 g/dL [facility] DEPARTMENT OF PATHOLOGY AND GENOMIC MEDICINE RDW - SD 38.6 37.0 - 55.0 fL [facility] DEPARTMENT OF PATHOLOGY AND GENOMIC MEDICINE MPV 9.8 8.8 - 13.2 fL [facility] DEPARTMENT OF PATHOLOGY AND GENOMIC MEDICINE Platelet count 299 150 - 400 k/uL [facility] DEPARTMENT OF PATHOLOGY AND GENOMIC MEDICINE Nucleated RBC 0.00 /100 WBC [facility] DEPARTMENT OF PATHOLOGY AND GENOMIC MEDICINE Neutrophils 71.3 (H) 39.0 - 69.0 % [facility] DEPARTMENT OF PATHOLOGY AND GENOMIC MEDICINE Lymphocytes 15.9 (L) 25.0 - 45.0 % [facility] DEPARTMENT OF PATHOLOGY AND GENOMIC MEDICINE Monocytes 7.4 0.0 - 10.0 % [facility] DEPARTMENT OF PATHOLOGY AND GENOMIC MEDICINE Eosinophils 4.7 0.0 - 5.0 % [facility] DEPARTMENT OF PATHOLOGY AND GENOMIC MEDICINE Basophils 0.2 0.0 - 1.0 % [facility] DEPARTMENT OF PATHOLOGY AND GENOMIC MEDICINE Specimen Blood Performing Organization Address [facility] Phone Number [address] [place] [address] PATHOLOGY [facility] * Thyroid stimulating hormone (02/13/2018 3:20 PM CDT) TSH <0.01 (L) 0.27 - 4.20 uIU/mL [facility] DEPARTMENT OF PATHOLOGY AND GENOMIC MEDICINE Specimen Plasma specimen Performing Organization Address [facility] Phone Number [address] [place] [address] PATHOLOGY [facility] GENOMIC [facility] * T4, free (02/13/2018 3:20 PM CDT) Pathologist [facility] T4, free 2.75 (H) 0.90 - 1.70 ng/dL [facility] DEPARTMENT OF PATHOLOGY AND GENOMIC MEDICINE Specimen Plasma specimen Performing Organization Address [facility] Phone Number [address] [place] [address] PATHOLOGY AND GENOMIC MEDICINE * T4 (02/13/2018 3:20 PM CDT) Pathologist [facility] T4 14.6 (H) 4.5 - 11.7 ug/dL [facility] DEPARTMENT OF PATHOLOGY AND GENOMIC MEDICINE Specimen Plasma specimen Performing Organization Address [facility] Phone Number [address] [place] [address] PATHOLOGY AND [facility] * Creatine kinase, total (CPK) (02/13/2018 3:20 PM CDT) [facility] Creatine kinase 96 26 - 192 U/L [facility] DEPARTMENT OF PATHOLOGY AND [facility] MEDICINE Specimen Plasma specimen Performing Organization Address [facility] Phone Number [address] [place] [address] PATHOLOGY AND [facility] * Comprehensive metabolic panel (02/13/2018 3:20 PM CDT) [facility] Sodium 140 135 - 148 mEq/L [facility] DEPARTMENT OF PATHOLOGY AND GENOMIC MEDICINE Potassium 4.0 3.5 - 5.0 mEq/L [facility] DEPARTMENT OF PATHOLOGY AND GENOMIC MEDICINE Chloride 102 98 - 112 mEq/L [facility] DEPARTMENT OF PATHOLOGY AND GENOMIC MEDICINE CO2 22 (L) 24 - 31 mEq/L [facility] DEPARTMENT OF PATHOLOGY AND GENOMIC MEDICINE Anion gap 16@ANIO (H) 7 - 15 mEq/L [facility] DEPARTMENT OF PATHOLOGY AND GENOMIC MEDICINE BUN 11 6 - 20 mg/dL [facility] DEPARTMENT OF PATHOLOGY AND GENOMIC MEDICINE Creatinine 0.6 0.5 - 0.9 mg/dL [facility] DEPARTMENT OF PATHOLOGY AND GENOMIC MEDICINE Glucose 148 (H) 65 - 99 mg/dL [facility] DEPARTMENT OF PATHOLOGY AND GENOMIC MEDICINE Calcium 9.0 8.3 - 10.2 mg/dL [facility] DEPARTMENT OF PATHOLOGY AND GENOMIC MEDICINE Protein 6.6 6.3 - 8.3 g/dL [facility] Comment: DEPARTMENT OF [place] PATHOLOGY AND 4.6-7.0 g/dL GENOMIC 1 MEDICINE week 4.4-7.6 g/dL 7 months-1year 5.1-7.3 g/dL 1-2 years5.6-7 .5 g/dL >3 years6.0-8 .0 g/dL 18-150 6.3-8.3 g/dL Albumin 3.5 3.5 - 5.0 g/dL [facility] DEPARTMENT OF PATHOLOGY AND GENOMIC MEDICINE A/G ratio 1.1 0.7 - 3.8 [facility] DEPARTMENT OF PATHOLOGY AND GENOMIC MEDICINE Alkaline 158 (H) 35 - 104 U/L [facility] phosphatase DEPARTMENT OF PATHOLOGY AND GENOMIC MEDICINE AST 23 10 - 35 U/L [facility] DEPARTMENT OF PATHOLOGY AND GENOMIC MEDICINE ALT 38 5 - 50 U/L [facility] DEPARTMENT OF PATHOLOGY AND GENOMIC MEDICINE Total bilirubin 0.3 0.0 - 1.2 mg/dL [facility] DEPARTMENT OF PATHOLOGY AND GENOMIC MEDICINE Specimen Plasma specimen Performing Organization Address City/State/Zipcode Phone Number [facility] DEPARTMENT [address] [place] [address] PATHOLOGY AND GENOMIC MEDICINE * ECG 12 lead (02/13/2018 3:11 PM CDT) Ventricular 87 [facility] rate Atrial rate 87 [facility] OK interval 122 [facility] QRSD interval 92 [facility] QT interval 348 [facility] QTC interval 418 [facility] P axis 1 40 [facility] QRS axis 1 36 [facility] T wave axis 62 [facility] EKG impression Normal sinus rhythm-Normal [facility] MUSE ECG-In automated comparison with ECG of 14-APR-2016 05:52,-Nonspecific T wave abnormality now evident in Lateral leads- -Also Electronically Signed By Moncho Solo MD ([id number])on 02/14/2018 7:08:26 AM Specimen Procedure Note Sawyer Bullard-Donal Hodge MD - 02/13/2018 3:10 PM CDT Emergency Department Provider Note Location: [facility] ED Patient ID: Smitha Kumar is a [...] SOB, or V/D. History provided by: Patient sign language interpreter used: No Leg Pain Location: Leg [...] day. , Starting Wed05/04/2017, Historical Med rizatriptan CUTTER WET MACHINE (MAXALT-CUTTER WET MACHINE) 10 MG disintegrating tablet TAKE 1 TABLET [...] normotensive, not tachycardic. Will discuss with her showplace manager. [NW] [address] Mcelroy - [...] 15 1616 Graves disease Bilateral leg cramps MDM MDM Number of Diagnoses or Management Options [...] ED Physician in the absence of a mushroom sorter grader: yes Interpretation: Interpretation: normal Rate: ECG rate: [...] Bullard MD 02/14/18 1617 Performing Organization Address City/State/[facility] Phone Number [facility] [address] [place] [address] after 01/04/2018 Insurance Type Payer Benefit Subscriber ID Effective Phone Address Plan / Dates Group [facility] CIGCHANTE CIGCHANTE OPEN xxxxxxxxxxx 2015-P ACCESS/NET resent WORK Advance Directives Patient has advance care planning documents, and code status on file. For more i nformation, please contact: Phi Garcia [address] [place] [address] Date Inactivated Comments Code Status Date Activated 07/15/2017 8:49 PM Full Code 07/13/2017 4:59 AM Code Status decision reached by: Patient
--- OUTSIDE RECORDS SUMMARY | 2019-01-05 16:32 | XMS REPORT | Continuity of Care Document ---
Author Author [facility] Interface Address Unknown Phone Unavailable Problems Problem Status Onset Date Classification Date Reported Comments Source LAPAROSCOPIC APPENDECTOMY Active 01/09/2014 Condition 01/10/2014 [facility] Hyperthyroidism Active Problem 11/13/2014 [facility] Hypertension Active Problem 11/13/2014 [facility] Vitamin d deficiency Active Problem 11/13/2014 [facility] Hypothyroid Active Diagnosis 07/10/2014 [facility] Sinusitis Active Diagnosis 07/10/2014 [facility] Hospital discharge follow-up Active Diagnosis 03/20/2014 [facility] Family history of thyroid cancer Active Diagnosis 03/20/2014 [facility] Fatigue Active Diagnosis 03/20/2014 [facility] Uterine leiomyoma Active Diagnosis 03/20/2014 [facility] Thyroid nodule Active Diagnosis 03/20/2014 [facility] Postoperative female pelvic peritoneal adhesions Active Diagnosis 03/20/2014 [facility] S/P appendectomy Active Diagnosis 03/20/2014 [facility] Fever Active Diagnosis 07/10/2014 [facility] Enlarged thyroid Active Diagnosis 07/10/2014 [facility] Upper respiratory infection Active Diagnosis 07/10/2014 [facility] Cough Active Diagnosis 07/10/2014 [facility] Anxiety and depression Active Diagnosis 11/13/2014 [facility] Insomnia Active Diagnosis 11/13/2014 [facility] Jaw pain Active Diagnosis 10/31/2014 [facility] Depression Active Diagnosis 10/31/2014 [facility] Anxiety Active Diagnosis 10/31/2014 [facility] Medications Medication Details Route Status Patient Instructions Ordering Provider Order Date Source Levothyroxine Sodium 112 Mcg Tablet, 112 Mcg Oral Daily Active 01/10/2018 [facility] Meloxicam (Mobic) 7.5 Mg Tablet, 7.5 Mg Oral Daily Active 01/10/2018 [facility] Ondansetron Hcl 4 Mg Tablet, Active 01/10/2018 [facility] Rizatriptan Benzoate (Maxalt) 10 Mg Tablet, Active 01/10/2018 [facility] Topiramate 25 Mg Tablet, Active 01/10/2018 [facility] HydrOXYzine HCl 1 tablet Orally Active 50 mg Orally 30 min before bedtime as needed for insomnia [place] 11/12/2014 [facility] Viibryd 1 tablet with food Orally Active 40 mg Orally Once a day [place] 10/29/2014 [facility] Cyclobenzaprine HCl 1 tablet Orally Active 10 mg Orally once a day as needed for jaw pain Rachel 10/29/2014 [facility] Alprazolam 1 tablet Orally Active 0.25 MG Orally once a day as needed for anxiety Rachel 10/29/2014 [facility] Viibryd as directed Orally Active 10 & 20 & 40 MG Orally Rachel 10/29/2014 [facility] Cefdinir 1 capsule Orally Active 300 MG Orally twice a day [place] 06/21/2014 [facility] Diflucan 1 tablet Orally Active 150 MG Orally Once; can repeat in 7 days [place] 06/21/2014 [facility] Tessalon 1 capsule as needed Orally Active 200 MG Orally Three times a day Rachel 05/07/2014 [facility] Promethazine-Codeine 5 ml as needed Orally Active 6.25-10 MG/5ML Orally every 6 hrs Rachel 05/07/2014 [facility] Augmentin 1 tablet Orally Active 875-125 MG Orally Twice a day [place] 05/07/2014 [facility] Vitamin D (Ergocalciferol) 1 capsule Orally Active 86297 UNIT Orally once per week [place] 01/23/2014 [facility] Estradiol 1 tablet Orally Active 1 MG Orally daily [facility] Vitamin E 1 capsule Orally Active 200 UNIT Orally Once a day Ghebranious [facility] Vitamin D 2 tablet Orally Active 2000 UNIT Orally once a week Ghe[place]anious [facility] Amitriptyline Hcl 25 Mg Tablet Active [facility] Cetirizine Hcl (Zyrtec) 10 Mg Capsule Daily Active THERAPEUTICALLY SUBSTITUTED WITH LORATIDINE 10MG [facility] Dicyclomine Hcl 10 Mg Capsule Active [facility] Diphenhydramine Hcl (Benadryl) 25 Mg Capsule As Needed as needed for Itching Active [facility] Methymazole Three Times A Day Active [facility] Prednisone 10 Mg Tab As Needed as needed for Shortness Of Breath Active [facility] Propranolol Hcl 20 Mg Tablet Active [facility] Rizatriptan Benzoate (Maxalt) 10 Mg Tablet Active [facility] Allergies, Adverse Reactions, Alerts Substance Category Reaction Severity Reaction type Status Date Reported Comments Source Erythromycin Adverse Reaction rash Adverse Reaction Active 11/12/2014 [facility] Iodine ITCH,N/V,SOB Mild Allergy to Substance Active 11/18/2017 [facility] Erythromycin base RASH Mild Allergy to Substance Active 11/18/2017 [facility] Metronidazole JAW LOCK Mild Allergy to Substance Active 11/18/2017 [facility] Soy Mild Allergy to Substance Active 11/18/2017 [facility] Coconut oil Mild Allergy to Substance Active 01/10/2018 [facility] Immunizations Immunization Date Given Site Status Last Updated Comments Source Results Order Name Results Value Reference Range Date Interpretation Comments Source Automated urine sediment leukocyte count by microscopy (number/high power field) Automated urine sediment leukocyte count by microscopy (number/high power field) null 0 - 5 04/17/2018 [facility] Bacteria detection in urine sediment by light microscopy Bacteria detection in urine sediment by light microscopy FEW NONE 04/17/2018 [facility] Epithelial cells detection in urine sediment by light microscopy Epithelial cells detection in urine sediment by light microscopy MANY NONE 04/17/2018 [facility] Erythrocytes detection in urine sediment by light microscopy Erythrocytes detection in urine sediment by light microscopy null 0 - 5 04/17/2018 [facility] Serum or plasma choriogonadotropin ( test) detection Serum or plasma choriogonadotropin ( test) detection NEGATIVE NEGATIVE 04/17/2018 [facility] Specific gravity of Urine by Test strip Specific gravity of Urine by Test strip 1.015 1.010 - 1.025 04/17/2018 [facility] Urine clarity Urine clarity HAZY CLEAR 04/17/2018 [facility] Urine color determination Urine color determination YELLOW YELLOW 04/17/2018 [facility] Urine erythrocytes detection Urine erythrocytes detection NEGATIVE NEGATIVE 04/17/2018 [facility] Urine glucose detection Urine glucose detection NEGATIVE NEGATIVE 04/17/2018 [facility] Urine ketones detection by automated test strip Urine ketones detection by automated test strip TRACE NEGATIVE 04/17/2018 [facility] Urine leukocyte esterase detection by dipstick Urine leukocyte esterase detection by dipstick TRACE NEGATIVE 04/17/2018 [facility] Urine nitrite detection Urine nitrite detection NEGATIVE NEGATIVE 04/17/2018 [facility] Urine pH measurement by automated test strip Urine pH measurement by automated test strip 8 5 - 7 04/17/2018 [facility] Urine protein measurement by test strip (mass/volume) Urine protein measurement by test strip (mass/volume) NEGATIVE NEGATIVE 04/17/2018 [facility] Urine total bilirubin measurement (mass/volume) Urine total bilirubin measurement (mass/volume) NEGATIVE NEGATIVE 04/17/2018 [facility] Urine urobilinogen measurement by test strip (mass/volume) Urine urobilinogen measurement by test strip (mass/volume) 1 0.2 - 1 04/17/2018 [facility] Automated blood basophil count (count/volume) Automated blood basophil count (count/volume) 0.0 0.0 - 0.1 04/17/2018 [facility] Automated blood basophil count as percentage of total leukocytes Automated blood basophil count as percentage of total leukocytes 0.3 0.0 - 1.0 04/17/2018 [facility] Automated blood eosinophil count Automated blood eosinophil count 0.4 0.0 - 0.4 04/17/2018 [facility] Automated blood eosinophil count as percentage of total leukocytes Automated blood eosinophil count as percentage of total leukocytes 3.2 0.0 - 6.0 04/17/2018 [facility] Automated blood hematocrit (volume fraction) Automated blood hematocrit (volume fraction) 37.4 34.2 - 44.1 04/17/2018 [facility] Automated blood lymphocyte count as percentage ot total leukocytes Automated blood lymphocyte count as percentage ot total leukocytes 22.6 18.0 - 39.1 04/17/2018 [facility] Automated blood monocyte count as percentage of total leukocytes Automated blood monocyte count as percentage of total leukocytes 9.9 4.4 - 11.3 04/17/2018 [facility] Automated blood neutrophil count Automated blood neutrophil count 7.0 2.1 - 6.9 04/17/2018 [facility] Automated blood platelet count (count/volume) Automated blood platelet count (count/volume) 372 140 - 360 04/17/2018 [facility] Automated blood segmented neutrophil count as percentage of total leukocytes Automated blood segmented neutrophil count as percentage of total leukocytes 63.7 38.7 - 80.0 04/17/2018 [facility] Automated erythrocyte mean corpuscular hemoglobin (mass per erythrocyte) Automated erythrocyte mean corpuscular hemoglobin (mass per erythrocyte) 29.2 28 - 32 04/17/2018 [facility] Automated erythrocyte mean corpuscular hemoglobin concentration measurement (mass/volume) Automated erythrocyte mean corpuscular hemoglobin concentration measurement (mass/volume) 34.0 31 - 35 04/17/2018 [facility] Automated erythrocyte mean corpuscular volume Automated erythrocyte mean corpuscular volume 86.0 81 - 99 04/17/2018 [facility] Blood erythrocytes automated count (number/volume) Blood erythrocytes automated count (number/volume) 4.35 3.6 - 5.1 04/17/2018 [facility] Blood hemoglobin measurement (moles/volume) Blood hemoglobin measurement (moles/volume) 12.7 12.0 - 16.0 04/17/2018 [facility] Blood leukocytes automated count (number/volume) Blood leukocytes automated count (number/volume) 10.96 4.8 - 10.8 04/17/2018 [facility] Blood lymphocytes count (number/volume) Blood lymphocytes count (number/volume) 2.5 1.0 - 3.2 04/17/2018 [facility] Blood monocytes automated count (number/volume) Blood monocytes automated count (number/volume) 1.1 0.2 - 0.8 04/17/2018 [facility] Estimated glomerular filtration rate (GFR) determination Estimated glomerular filtration rate (GFR) determination null 60 04/17/2018 [facility] Fibrin D-dimer DDU measurement in platelet poor plasma (mass/volume) Fibrin D-dimer DDU measurement in platelet poor plasma (mass/volume) 0.48 0.00 - 0.45 04/17/2018 [facility] Free thyroxine index Free thyroxine index 5.9271 1.4 - 3.8 04/17/2018 [facility] Glucose measurement Glucose measurement 96 74 - 118 04/17/2018 [facility] Plasma globulin measurement (mass/volume) Plasma globulin measurement (mass/volume) 3.6 2.3 - 3.5 04/17/2018 [facility] Serum or plasma alanine aminotransferase measurement (enzymatic activity/volume) Serum or plasma alanine aminotransferase measurement (enzymatic activity/volume) 30 0 - 55 04/17/2018 [facility] Serum or plasma albumin measurement (mass/volume) Serum or plasma albumin measurement (mass/volume) 3.2 3.5 - 5.0 04/17/2018 [facility] Serum or plasma albumin/globulin mass ratio Serum or plasma albumin/globulin mass ratio 0.9 0.8 - 2.0 04/17/2018 [facility] Serum or plasma alkaline phosphatase measurement (enzymatic activity/volume) Serum or plasma alkaline phosphatase measurement (enzymatic activity/volume) 134 40 - 150 04/17/2018 [facility] Serum or plasma anion gap Serum or plasma anion gap 12.5 8 - 16 04/17/2018 [facility] Serum or plasma calcium measurement (mass/volume) Serum or plasma calcium measurement (mass/volume) 9.0 8.4 - 10.2 04/17/2018 [facility] Serum or plasma carbon dioxide, total measurement (moles/volume) Serum or plasma carbon dioxide, total measurement (moles/volume) 24 22 - 29 04/17/2018 [facility] Serum or plasma chloride measurement (moles/volume) Serum or plasma chloride measurement (moles/volume) 102 98 - 107 04/17/2018 [facility] Serum or plasma creatinine measurement (mass/volume) Serum or plasma creatinine measurement (mass/volume) 0.76 0.57 - 1.11 04/17/2018 [facility] Serum or plasma potassium measurement (moles/volume) Serum or plasma potassium measurement (moles/volume) 3.5 3.5 - 5.1 04/17/2018 [facility] Serum or plasma protein measurement (mass/volume) Serum or plasma protein measurement (mass/volume) 6.8 6.5 - 8.1 04/17/2018 [facility] Serum or plasma sodium measurement (moles/volume) Serum or plasma sodium measurement (moles/volume) 135 136 - 145 04/17/2018 [facility] Serum or plasma thyrotropin measurement by detection limit <=0.005 miu/l (units/volume) Serum or plasma thyrotropin measurement by detection limit <=0.005 miu/l (units/volume) 0.000 0.350 - 4.940 04/17/2018 [facility] Serum or plasma thyroxine (T4) measurement (mass/volume) Serum or plasma thyroxine (T4) measurement (mass/volume) 19.04 4.5 - 10.9 04/17/2018 [facility] Serum or plasma total bilirubin measurement (mass/volume) Serum or plasma total bilirubin measurement (mass/volume) 0.5 0.2 - 1.2 04/17/2018 [facility] Serum or plasma triiodothyronine resin uptake (T3RU) Serum or plasma triiodothyronine resin uptake (T3RU) 31.13 22.5 - 37.0 04/17/2018 [facility] Serum or plasma urea nitrogen measurement (mass/volume) Serum or plasma urea nitrogen measurement (mass/volume) 9 7 - 26 04/17/2018 [facility] Serum or plasma urea nitrogen/creatinine mass ratio Serum or plasma urea nitrogen/creatinine mass ratio 12 6 - 25 04/17/2018 [facility] Red Cell Distribution Width 12.1 11.7 - 14.4 04/17/2018 [facility] IM GRANULOCYTES % 0.3 0.0 - 1.0 04/17/2018 [facility] Absolute Immature Granulocyte (auto 0.03 0 - 0.1 04/17/2018 [facility] Aspartate Amino Transf (AST/SGOT) 26 5 - 34 04/17/2018 [facility] B-Type Natriuretic Peptide null 0 - 100 04/17/2018 [facility] Mucus detection in urine sediment by light microscopy Mucus detection in urine sediment by light microscopy FEW RARE 01/10/2018 [facility] Urine human chorionic gonadotropin (hCG) detection Urine human chorionic gonadotropin (hCG) detection NEGATIVE NEGATIVE 01/10/2018 [facility] Activated partial thromboplastin time (aPTT) in platelet poor plasma bycoagulation assay Activated partial thromboplastin time (aPTT) in platelet poor plasma bycoagulation assay 29.2 23.8 - 35.5 11/18/2017 [facility] INR in Platelet poor plasma by Coagulation assay INR in Platelet poor plasma by Coagulation assay 1.13 11/18/2017 [facility] Prothrombin time (PT) in platelet poor plasma by coagulation assay Prothrombin time (PT) in platelet poor plasma by coagulation assay 13.6 11.9 - 14.5 11/18/2017 [facility] Serum or plasma magnesium measurement (mass/volume) Serum or plasma magnesium measurement (mass/volume) 1.4 1.3 - 2.1 11/18/2017 [facility] Vital Signs Vital Sign Value [...] Assoc Temperature Oral (F) 98.5 F 02/05/2014 [facility] Heart Rate [...] [facility] Systolic (mm Hg) 123 01/09/2014 [facility] Diastolic (mm Hg) 86 01/09/2014 [...] Provider ADM Date DC Date Status Source [facility] follow up from hospital. [id number] 01/04/2014 01/04/2014 [facility] follow up from hospital. [id number] 01/04/2014 01/04/2014 [facility] follow up from hospital. [id number] 01/04/2014 01/04/2014 [facility] follow up from hospital. [id number] 01/04/2014 01/04/2014 [facility] follow up from hospital. [id number] 01/04/2014 01/04/2014 [facility] follow up from hospital. [id number] 01/04/2014 01/04/2014 [facility] follow up from hospital. [id number] 01/04/2014 01/04/2014 [facility] follow up from hospital. [id number] 01/04/2014 01/04/2014 [facility] follow up from hospital. [id number] 01/04/2014 01/04/2014 [facility] follow up from hospital. [id number] 01/04/2014 01/04/2014 [facility] follow up from hospital. [id number] 01/04/2014 01/04/2014 [facility] General Surgery 350 Office Visit [id number] Toan Blue MD 01/09/2014 01/09/2014 [facility] Lab Report [id number] Toan Blue MD 01/10/2014 01/10/2014 [facility] results [id number] 01/22/2014 01/22/2014 [facility] results [id number] 01/22/2014 01/22/2014 [facility] results [id number] 01/22/2014 01/22/2014 [facility] results [id number] 01/22/2014 01/22/2014 [facility] results [id number] 01/22/2014 01/22/2014 [facility] results [id number] 01/22/2014 01/22/2014 [facility] results [id number] 01/22/2014 01/22/2014 [facility] results [id number] 01/22/2014 01/22/2014 [facility] results [id number] 01/22/2014 01/22/2014 [facility] results [id number] 01/22/2014 01/22/2014 [facility] results [id number] 01/22/2014 01/22/2014 [facility] follow up on ultrasound results [id number] 02/05/2014 02/05/2014 [facility] follow up on ultrasound results [id number] 02/05/2014 02/05/2014 [facility] follow up on ultrasound results [id number] 02/05/2014 02/05/2014 [facility] follow up on ultrasound results [id number] 02/05/2014 02/05/2014 [facility] follow up on ultrasound results [id number] 02/05/2014 02/05/2014 [facility] follow up on ultrasound results [id number] 02/05/2014 02/05/2014 [facility] follow up on ultrasound results [id number] 02/05/2014 02/05/2014 [facility] follow up on ultrasound results [id number] 02/05/2014 02/05/2014 [facility] follow up on ultrasound results [id number] 02/05/2014 02/05/2014 [facility] follow up on ultrasound results [id number] 02/05/2014 02/05/2014 [facility] follow up on ultrasound results [id number] 02/05/2014 02/05/2014 [facility] raspatory infection [id number] 05/07/2014 05/07/2014 [facility] raspatory infection [id number] 05/07/2014 05/07/2014 [facility] raspatory infection [id number] 05/07/2014 05/07/2014 [facility] [facility] raspatory infection [id number] 05/07/2014 05/07/2014 [facility] raspatory infection [id number] 05/07/2014 05/07/2014 [facility] raspatory infection [id number] 05/07/2014 05/07/2014 [facility] raspatory infection [id number] 05/07/2014 05/07/2014 [facility] raspatory infection [id number] 05/07/2014 05/07/2014 [facility] Unknown [id number] 05/07/2014 05/07/2014 [facility] Unknown [id number] 05/07/2014 05/07/2014 [facility] Unknown [id number] 05/07/2014 05/07/2014 [facility] Unknown [id number] 05/07/2014 05/07/2014 [facility] Unknown [id number] 05/07/2014 05/07/2014 [facility] Unknown [id number] 05/07/2014 05/07/2014 [facility] Unknown [id number] 05/07/2014 05/07/2014 [facility] Unknown [id number] 05/07/2014 05/07/2014 [facility] Needs call back from Medical Staff [id number] 05/14/2014 05/14/2014 [facility] Needs call back from Medical Staff [id number] 05/14/2014 05/14/2014 [facility] Needs call back from Medical Staff [id number] 05/14/2014 05/14/2014 [facility] Needs call back from Medical Staff [id number] 05/14/2014 05/14/2014 [facility] Needs call back from Medical Staff [id number] 05/14/2014 05/14/2014 [facility] Needs call back from Medical Staff [id number] 05/14/2014 05/14/2014 [facility] Needs call back from Medical Staff [id number] 05/14/2014 05/14/2014 [facility] THYROID US/LYNJOAO [id number] 06/06/2014 06/06/2014 [facility] THYROID US/LYNZEE [id number] 06/06/2014 06/06/2014 [facility] THYROID US/LYNJOAO [id number] 06/06/2014 06/06/2014 [facility] THYROID US/LYNJOAO [id number] 06/06/2014 06/06/2014 [facility] THYROID US/LYNJOAO [id number] 06/06/2014 06/06/2014 [facility] THYROID US/LYNZEE [id number] 06/06/2014 06/06/2014 [facility] THYROID US/LYNZEE [id number] 06/06/2014 06/06/2014 [facility] BODYACHES/ FEVER [id number] 06/21/2014 06/21/2014 [facility] BODYACHES/ FEVER [id number] 06/21/2014 06/21/2014 [facility] BODYACHES/ FEVER [id number] 06/21/2014 06/21/2014 [facility] BODYACHES/ FEVER [id number] 06/21/2014 06/21/2014 [facility] BODYACHES/ FEVER [id number] 06/21/2014 06/21/2014 [facility] BODYACHES/ FEVER [id number] 06/21/2014 06/21/2014 [facility] BODYACHES/ FEVER [id number] 06/21/2014 06/21/2014 [facility] CONSULT-DEPRESSION [id number] 10/29/2014 10/29/2014 [facility] CONSULT-DEPRESSION [id number] 10/29/2014 10/29/2014 [facility] 2 week follow up [id number] 11/12/2014 11/12/2014 [facility] Departed Emergency Room [id number] NAREN PIKE MD 11/18/2017 11/18/2017 [facility] Departed Emergency Room [id number] SHIVAM GUEVARA MD 01/10/2018 01/10/2018 [facility] Departed Emergency Room [id number] PELON VASQUEZ MD 01/11/2018 01/11/2018 [facility] Departed Emergency Room [id number] ZARA TOTH MD 04/17/2018 04/17/2018 [facility] Procedures Procedure Code Date Perfomer Comments Source CT of abdomen and pelvis without contrast [id number] 01/10/2018 [place] X-ray of chest, two views [id number] 11/18/2017 [facility]
[2019-01-05] MEDS ORDERED: IBUPROFEN 600 MG TAB PO ONE (17:00)
[2019-01-05] MEDS ORDERED: DEXAMETHASONE SOD PHOS 10 MG/1 ML VIAL IM ONE (17:00)
[2019-01-05] MEDS ORDERED: ACETAMINOPHEN/CODEINE ELIX 120-12 MG/5 ML UDC PO ONE (17:00)
[2019-01-05] MEDS ORDERED: PENICILLIN G BENZATHINE LA 1.2 MU TBX IM ONE (17:00)
[2019-01-05] MEDS ORDERED: ONDANSETRON HCL 4 MG ORAL DISINTEGRATING TAB PO ONE (17:30)
== END 2019-01-05 19:08 | disposition home or self-care (01) ==
LOC: ER 16:27
DX: J02.0 Streptococcal pharyngitis (principal)
CPT/HCPCS: 99283; J0561; J1100; Q0162

== ENCOUNTER 2019-06-13 14:06 | Emergency (ER) | payer SELFPAY ==
[~2019-06-13] VITALS: Ht 152.4 cm; Wt 76.2 kg
[2019-06-13 15:14] LABS: STREPTOCOCCUS GRP A ANTIGEN NEGATIVE (NEGATIVE)
[2019-06-13 15:26] LABS: INFLUENZAE A&B ANTIGEN (RAPID) POSITIVE FLU A (NEGATIVE)
== END 2019-06-13 15:36 | disposition home or self-care (01) ==
LOC: ER 14:06
DX: R50.9 Fever, unspecified (principal); J11.1 Influenza due to unidentified influenza virus with other respiratory manifestations; E05.00 Thyrotoxicosis with diffuse goiter without thyrotoxic crisis or storm; G40.909 Epilepsy, unspecified, not intractable, without status epilepticus; Z85.43 Personal history of malignant neoplasm of ovary; Z85.51 Personal history of malignant neoplasm of bladder
CPT/HCPCS: 83518; 87070; 87400; 99283

== ENCOUNTER 2020-10-13 15:16 | Emergency (ER) | payer SELFPAY ==
[~2020-10-13] VITALS: Ht 152.4 cm; Wt 76.2 kg
[2020-10-13] MEDS ORDERED: HYDROCODONE/APAP 7.5MG-325MG 1 EA TAB PO ONE (16:00)
[2020-10-13] MEDS ORDERED: KETOROLAC TROMETHAMINE 60 MG/2 ML VIAL IM ONE (16:30)
[2020-10-13 17:06] VITALS: BP 136/83
== END 2020-10-13 17:11 | disposition home or self-care (01) ==
LOC: ER 15:57
DX: M25.562 Pain in left knee (principal); S83.92XA Sprain of unspecified site of left knee, initial encounter; X50.1XXA Overexertion from prolonged static or awkward postures, initial encounter; Y92.002 Bathroom of unspecified non-institutional (private) residence as the place of occurrence of the external cause; G40.909 Epilepsy, unspecified, not intractable, without status epilepticus; F41.9 Anxiety disorder, unspecified; Z85.51 Personal history of malignant neoplasm of bladder; Z85.43 Personal history of malignant neoplasm of ovary; F17.210 Nicotine dependence, cigarettes, uncomplicated
CPT/HCPCS: 73562; 99283; J1885

== ENCOUNTER 2024-03-21 20:48 | Emergency (ER) | payer OTHER ==
[~2024-03-21] VITALS: Ht 152.4 cm; Wt 73.9 kg
[~2024-03-21 20:48] MED LIST changes: +ACYCLOVIR200 MG PO; +AUGMENTIN 500-1 EACH PO
[2024-03-21 21:09] VITALS: PULSE 75; RESP 18; TEMP 99.2; O2SAT 98
== END 2024-03-21 21:30 | disposition home or self-care (01) ==
LOC: ER 21:14
DX: H53.9 Unspecified visual disturbance (principal); I25.10 Atherosclerotic heart disease of native coronary artery without angina pectoris; G40.909 Epilepsy, unspecified, not intractable, without status epilepticus; M06.9 Rheumatoid arthritis, unspecified; M32.9 Systemic lupus erythematosus, unspecified; F41.9 Anxiety disorder, unspecified; I25.2 Old myocardial infarction; Z85.43 Personal history of malignant neoplasm of ovary; Z85.51 Personal history of malignant neoplasm of bladder; Z87.19 Personal history of other diseases of the digestive system
CPT/HCPCS: 99282

== ENCOUNTER 2024-08-31 10:10 | Emergency (ER) | payer OTHER ==
[~2024-08-31] VITALS: Ht 152.4 cm; Wt 71.7 kg
[2024-08-31] MEDS: ACETAMINOPHEN 325 MG TAB PO ONE (10:44)
[2024-08-31] MEDS: ONDANSETRON HCL INJ 2MG/ML 2ML 2 MG/ML VIAL IV STA (10:45)
[2024-08-31] MEDS: SODIUM CHLORIDE 0.9% 1000ML 1,000 ML IV STA (10:45)
[2024-08-31] MEDS: Morphine 4mg INJECTION 4 MG/ML INJ IV STA (10:52)
[2024-08-31] MEDS: METHYLPREDNISOLONE SOD SUCC 125 MG/2ML VIAL IV STA (10:52)
[2024-08-31] MEDS: DIPHENHYDRAMINE HCL INJ 50 MG/ML VIAL IV ONE (10:52)
[2024-08-31] MEDS: KETOROLAC TROMETHAMINE 30 MG/ML VIAL IV STA ×2 (10:53→14:38)
[2024-08-31] MEDS ORDERED: SODIUM CHLORIDE 0.9% 250ML 0 ML ONE (11:11)
[2024-08-31] MEDS ORDERED: IOPAMIDOL 370 MG/ML 100 ML INFUS..BTL INJ ONE (11:11)
[2024-08-31 11:24] LABS: BASOPHILS # (AUTO) 0.1 (0.0-0.1); BASOPHILS % 0.5 % (0.0-1.0); EOSINOPHILS # (AUTO) 0.3 (0.0-0.4); EOSINOPHILS % 2.3 % (0.0-6.0); HEMATOCRIT 41.9 % (34.2-44.1); HEMOGLOBIN 13.3 g/dL (12.0-16.0); LYMPHOCYTES # (AUTO) 1.9 (1.0-3.2); LYMPHOCYTES % 15.5 % (18.0-39.1); MEAN CORPUSCULAR HEMOGLOBIN 31.7 pg (28-32); MEAN CORPUSCULAR HGB CONC 31.7 g/dL (31-35); MONOCYTES # (AUTO) 0.5 (0.2-0.8); MONOCYTES % 4.2 % (4.4-11.3); NEUTROPHILS # (AUTO) 9.7 (2.1-6.9); NEUTROPHILS % 77.3 % (38.7-80.0); PLATELET COUNT 275 x10e3/uL (140-360); RED BLOOD COUNT 4.19 x10e6/uL (3.6-5.1); RED CELL DISTRIBUTION WIDTH 11.8 % (11.7-14.4); WHITE BLOOD COUNT 12.49 x10e3/uL (4.8-10.8)
[2024-08-31 11:27] LABS: BACTERIA,URINE FEW /HPF; BILIRUBIN,URINE NEGATIVE (NEGATIVE); CLARITY,URINE CLEAR (CLEAR); COLOR,URINE YELLOW (YELLOW); EPITHELIAL CELLS,URINE FEW /LPF; GLUCOSE, URINE NEGATIVE (NEGATIVE); KETONES,URINE NEGATIVE (NEGATIVE); LEUKOCYTE ESTERASE ,URINE SMALL (NEGATIVE); NITRITE,URINE NEGATIVE (NEGATIVE); PH,URINE 7 (5 - 7); PROTEIN,URINE DIPSTICK NEGATIVE (NEGATIVE); RBC,URINE 21-50 /HPF (0-5); URINE UROBILINOGEN 0.2 mg/dL (0.2 - 1)
[2024-08-31 11:28] LABS: INR 1.03; PROTHROMBIN TIME 14.1 seconds (11.9-14.5)
[2024-08-31 11:28] LABS: TRANSITIONAL EPI CELLS,URINE FEW
[2024-08-31 11:29] LABS: PARTIAL THROMBOPLASTIN TIME 29.2 seconds (23.8-35.5)
[2024-08-31 11:37] LABS: ALBUMIN 3.9 g/dL (3.5-5.0); ALBUMIN/GLOBULIN RATIO 1.2 (0.8-2.0); ANION GAP 15.2 mmol/L (8-16); BILIRUBIN,TOTAL 0.7 mg/dL (0.2-1.2); CREATININE, SERUM 0.71 mg/dL (0.57-1.11); MAGNESIUM 1.7 MG/DL (1.3-2.1); TOTAL PROTEIN 7.2 g/dL (6.5-8.1)
[2024-08-31 11:42] LABS: POTASSIUM 3.2 mmol/L (3.5-5.1)
[2024-08-31] MEDS ORDERED: CEFDINIR300 MG PO (13:56)
[2024-08-31] MEDS ORDERED: OXYBUTYNIN CHLOR5 MG PO (13:56)
[2024-08-31] MEDS ORDERED: ONDANSETRON ODT4 MG PO (14:32)
[2024-08-31] MEDS: OXYBUTYNIN CHLORIDE 5 MG TAB PO ONE (14:37)
[2024-08-31 15:00] VITALS: PULSE 68; RESP 14; TEMP 98.1; O2SAT 96
== END 2024-08-31 15:05 | disposition home or self-care (01) ==
LOC: ER 10:17
DX: R33.9 Retention of urine, unspecified (principal); N30.91 Cystitis, unspecified with hematuria; N32.89 Other specified disorders of bladder; G40.909 Epilepsy, unspecified, not intractable, without status epilepticus; M06.9 Rheumatoid arthritis, unspecified; M32.9 Systemic lupus erythematosus, unspecified; F41.9 Anxiety disorder, unspecified; Z85.51 Personal history of malignant neoplasm of bladder; Z85.43 Personal history of malignant neoplasm of ovary; Z87.19 Personal history of other diseases of the digestive system
CPT/HCPCS: 36415; 51702; 74176; 80053; 81001; 83735; 85025; 85610; 85730; 87086; 99284; J0696; J1200; J1885; J2270; J2405; J2919; J7030; Q9967; 51700; J7050

== ENCOUNTER 2024-09-14 14:16 | Emergency (ER) | payer OTHER ==
[~2024-09-14] VITALS: Ht 152.4 cm; Wt 71.7 kg
[~2024-09-14 14:16] MED LIST changes: +CEFDINIR300 MG PO; +ONDANSETRON ODT4 MG PO; +OXYBUTYNIN CHLOR5 MG PO
[2024-09-14 14:39] VITALS: RESP 16; TEMP 98.1
[2024-09-14 15:13] VITALS: PULSE 70; O2SAT 99
== END 2024-09-14 15:30 | disposition home or self-care (01) ==
LOC: ER 14:24
DX: Z46.6 Encounter for fitting and adjustment of urinary device (principal); M32.9 Systemic lupus erythematosus, unspecified; G40.909 Epilepsy, unspecified, not intractable, without status epilepticus; M06.9 Rheumatoid arthritis, unspecified; F41.9 Anxiety disorder, unspecified; I25.2 Old myocardial infarction; Z85.51 Personal history of malignant neoplasm of bladder; Z85.43 Personal history of malignant neoplasm of ovary; Z87.19 Personal history of other diseases of the digestive system
CPT/HCPCS: 51701; 99283